=== PATIENT | male | born 1955 | race American Indian/Alaskan Native ===

== ENCOUNTER 2021-11-21 13:09 | Inpatient (IN) ==
--- NOTE | 2021-11-21 13:50 | Emergency Department Note ---
Weakness HPI General Chief complaint: Weakness Stated complaint: Weakness x7wks Time Seen by Provider: 11/21/21 13:28 Source: patient Mode of arrival: wheelchair Limitations: no limitations History of Present Illness HPI Narrative: 66-year-old male with history of chronic kidney disease due to hypertension presents for 7 weeks of increasing weakness, exertional shortness of breath, and water weight gain. He was checked for influenza today and he is influenza B positive. He states that he was in usual state of health until 7 weeks ago when he started having exertional shortness of breath and weakness. He has no known cardiac history, but endorses history of hypertension for which he is noncompliant with his antihypertensive medications. He drinks 3-6 drinks a up to 3 x week, quit smoking 10 weeks ago. Denies chest pain, nausea or vomiting. He does endorse feeling full in his belly. Also endorses some lower extremity swelling which is new for him. Denies nausea or vomiting. Denies abdominal pain. Denies difficulty urinating. Per chart review from the [facility] clinic. The patient has a previous history of drinking 15 beers per day. He does have a history of transaminitis. He was scheduled to have a liver ultrasound and GI referral at that time, but it does not seem that he followed up. Patient endorses it has been several years since he has seen a doctor. Related Data Home Medications Medication Instructions Recorded Confirmed aspirin 81 mg tablet 81 mg PO QDAY 01/20/16 05/24/16 chlorthalidone 25 mg tablet 25 mg PO QDAY 01/20/16 05/24/16 losartan 100 mg tablet 100 mg PO QDAY 01/20/16 05/24/16 simvastatin 20 mg tablet 10 mg PO QHS tab 01/20/16 05/24/16 amlodipine 5 mg tablet 5 mg PO QDAY 01/26/16 05/24/16 fluticasone propionate 50 100 mcg INTRANASAL QDAY 05/24/16 05/24/16 mcg/actuation nasal spray,suspension (Allergy Relief (fluticasone)) Previous Rx's Medication Instructions Recorded cholecalciferol (vitamin D3) 50 2,000 unit PO QDAY #30 cap 05/24/16 mcg (2,000 unit) capsule Allergies Allergy/AdvReac Type Severity Reaction Status Date / Time No Known Allergies Allergy Unknown Unknown Verified 11/21/21 13:13 Review of Systems ROS ROS Narrative: Narrative: All systems ED: reviewed and negative except as stated. [facility] Narrative Patient History Narrative: Narrative: Medical/Surgical/Family History All Active Problems (Updated 11/21/21 @ 20:26 by Susana Morales PA-C) Acute kidney injury superimposed on chronic kidney disease (Acute) Anemia (Acute) Alcoholic cirrhosis of liver with ascites (Acute) Influenza B (Acute) Hypertension (Chronic) CKD (chronic kidney disease) stage 2, GFR 60-89 ml/min (Acute) CKD (chronic kidney disease) stage 3, GFR 30-59 ml/min (Acute) Smoker (Chronic) Hypertension, essential (Chronic) Rotator cuff tear arthropathy (Chronic) Corneal lesion, benign (Chronic) Dry cough (Chronic) Elevated liver function tests (Chronic) Generalized headaches (Chronic) Medical History Corneal lesion, benign Dry cough Elevated liver function tests Generalized headaches Hypertension, essential Rotator cuff tear arthropathy Smoker Surgical History History of back surgery X2 in the early Family History Other No pertinent family history Social History Smoking Status: Current some day smoker Alcohol Intake Frequency: 2+ drinks per day Exam Narrative Narrative: General: AOx3, NAD, nontoxic appearing. Pleasant and conversant. HEENT: PERRL, EOMI, normocephalic. Moist mucous membranes. Normal facies and normal dentition. Chest: Symmetric, no pain to palpation Respiratory: Crackles at the bases bilaterally. No respiratory distress. Unlabored breathing. Heart: Regular rate and rhythm, grade 3 blowing holosystolic murmur, no clicks/rubs. Abdomen: Non-tender, distended, could not appreciate bowel tones. Right upper quadrant tenderness. Extremities: Warm and well perfused. 2+ pitting edema bilaterally. DP 2+ bilaterally. No venous stasis. Neuro: No focal deficits. Cranial nerves II-XII grossly normal. Skin: Warm dry, no rashes or lesions, no cyanosis. Psych: Normal mood and affect Heme/Lymph: No abnormal bruising General Limitations: no limitations Course Course Course Narrative: 66-year-old male presents for gradual onset weakness and edema x 7-week and is influenza B positive today Reevaluation(s) Reevaluation #1: Patient with new onset heart failure, obtain basic labs, BNP, EKG, chest x-ray Start IV and give IV Lasix 40 mg x 1 dose Time: 15:48 Reevaluation #2: EKG shows normal sinus rhythm with a rate of 88 bpm. He is diffuse nonspecific ST abnormalities with T wave inversions in inferior lateral leads. No previous EKG for comparison. Troponin is undetectable. Chest x-ray shows a middle lobe infiltrate. Patient is not being given antivirals as the duration of his influenza B is unknown. Patient bladder scanned and greater than 940 cc post residual void. Santillan catheter was placed. FAST exam at the bedside reveals large volume free fluid, formal ultrasound and paracentesis pending Reevaluation #3: CBC with no leukocytosis. He is anemic with a hemoglobin of 9.1. This was 13.0 in 10/2019. CMP reveals an elevated AST of 72 and a bilirubin of 4.4. Per chart review he does have a history of transaminitis with previous ALT of 72 and AST of 97, and Tbili 1.1 also in 2019. Creatinine is 2.4, last known creatinine of 1.3 in October 2019. Additional Reevaluation(s): Paracentesis with 5.9 L of fluid removed. This was bloody. It is been sent for cell count, Gram stain and culture. Patient is amenable to admission if it is deemed necessary. Concern would be for noncompliance and poor follow-up if he is discharged home. Vital Signs Vital signs: Vital Signs Temperature 97.4 F 11/21/21 13:09 Pulse Rate 88 11/21/21 13:09 Respiratory Rate 18 11/21/21 13:09 Blood Pressure 126/74 11/21/21 13:09 Pulse Oximetry (%) 97 11/21/21 13:09 Temperature 97.4 F 11/21/21 13:09 Pulse Rate 82 11/21/21 19:01 Respiratory Rate 18 11/21/21 13:09 Blood Pressure 101/54 11/21/21 20:01 Pulse Oximetry (%) 99 11/21/21 19:01 [facility] MDM Narrative Medical decision making narrative: Influenza B pneumonia Alcoholic liver cirrhosis Ascites Acute on chronic kidney disease Weakness Anemia Fluid cultures are pending from his paracentesis. Patient has remained hemodynamically stable after 5.9 L fluid removal. EKG did have some nonspecific ST abnormalities, but troponin is negative. His respiratory status has been stable. I have signed the patient out to Dr. Lind at change of shift. Please see his note for further details and plan of care. Lab Data Result diagrams: 11/21/21 13:46 11/21/21 13:46 Labs: Lab Results 11/21/21 11/21/21 11/21/21 Range/Units 13:46 13:46 13:46 WBC 8.3 (4.5-11.0) K/mcL RBC 2.31 L (4.63-6.08) M/mcL Hgb 9.1 L (13.7-17.5) g/dL Hct 25.4 L (40.1-51.0) % MCV 110.0 H (80.0-100.0) fL MCH 39.4 H (26.0-34.0) pg MCHC 35.8 (31.0-36.0) g/dL RDW 18.2 H (11.5-14.5) % Plt Count 127 L (140-440) K/mcL MPV 9.9 (7.4-10.4) fL Neut % (Auto) 73.7 (38.0-78.0) % Lymph % (Auto) 13.4 L (15.5-49.0) % [place] % (Auto) 12.6 H (1.0-12.0) % Eos % (Auto) 0.1 (0.0-7.0) % Baso % (Auto) 0.2 (0.0-2.0) % Lymph # (Auto) 1.11 L (1.50-4.80) K/mcL [place] # (Auto) 1.04 H (0.10-0.90) K/mcL Eos # (Auto) 0.01 (0.00-0.70) K/mcL Baso # (Auto) 0.02 (0.00-0.30) K/mcL Absolute Neutrophils 6.10 (1.80-8.00) K/mcL POC PT (11.9-14.5) POC INR (0.8-1.2) Sodium 130 L (133-145) mmol/L Potassium 3.8 (3.3-5.1) mmol/L Chloride 97 (96-108) mmol/L Carbon Dioxide 20 L (22-30) mmol/L Anion Gap 13.0 (8.0-16.0) BUN 39 H (8-23) mg/dL Creatinine 2.4 H (0.7-1.2) mg/dL GFR Calculation 27 Glucose 105 (70-105) mg/dL Calcium 8.5 L (8.6-10.4) mg/dL Total Bilirubin 4.5 H 4.4 H (0.1-1.0) mg/dL Direct Bilirubin 2.8 H (<0.3) mg/dL Indirect Bilirubin 1.6 H (0.2-0.8) mg/dL AST 72 H (<40) U/L ALT 32 (<40) U/L Alkaline Phosphatase 91 (39-117) U/L NT-Pro-B Natriuret Pep 402.4 H (<125.0) pg/mL Total Protein 7.7 (5.9-8.4) gm/dL Albumin 2.0 L (3.2-5.2) gm/dL Globulin 5.7 H (2.2-3.7) gm/dL Albumin/Globulin Ratio 0.4 L (1.0-2.3) Urine Color Urine Appearance (Clear) Urine pH (5.0-9.0) Ur Specific [place] (1.000-1.035) Urine Protein (Negative) mg/dL Urine Glucose (UA) (Negative) mg/dL Urine Ketones (Negative) mg/dL Urine Occult Blood (Negative) mg/dL Urine Nitrate (Negative) Urine Bilirubin (Negative) mg/dL Urine Urobilinogen mg/dL Ur Leukocyte Esterase (Negative) /uL Ur Culture Indicated? Hepatitis A IgM Ab (Non-Reactive) Hep Bs Antigen (Negative) Hep B Core IgM Ab (Non-Reactive) Hepatitis C Antibody (Non-Reactive) POC Troponin I 11/21/21 11/21/21 11/21/21 Range/Units 13:46 14:19 16:10 WBC (4.5-11.0) K/mcL RBC (4.63-6.08) M/mcL Hgb (13.7-17.5) g/dL Hct (40.1-51.0) % MCV (80.0-100.0) fL MCH (26.0-34.0) pg MCHC (31.0-36.0) g/dL RDW (11.5-14.5) % Plt Count (140-440) K/mcL MPV (7.4-10.4) fL Neut % (Auto) (38.0-78.0) % Lymph % (Auto) (15.5-49.0) % [place] % (Auto) (1.0-12.0) % Eos % (Auto) (0.0-7.0) % Baso % (Auto) (0.0-2.0) % Lymph # (Auto) (1.50-4.80) K/mcL [place] # (Auto) (0.10-0.90) K/mcL Eos # (Auto) (0.00-0.70) K/mcL Baso # (Auto) (0.00-0.30) K/mcL Absolute Neutrophils (1.80-8.00) K/mcL POC PT (11.9-14.5) POC INR (0.8-1.2) Sodium (133-145) mmol/L Potassium (3.3-5.1) mmol/L Chloride (96-108) mmol/L Carbon Dioxide (22-30) mmol/L Anion Gap (8.0-16.0) BUN (8-23) mg/dL Creatinine (0.7-1.2) mg/dL GFR Calculation Glucose (70-105) mg/dL Calcium (8.6-10.4) mg/dL Total Bilirubin (0.1-1.0) mg/dL Direct Bilirubin (<0.3) mg/dL Indirect Bilirubin (0.2-0.8) mg/dL AST (<40) U/L ALT (<40) U/L Alkaline Phosphatase (39-117) U/L NT-Pro-B Natriuret Pep (<125.0) pg/mL Total Protein (5.9-8.4) gm/dL Albumin (3.2-5.2) gm/dL Globulin (2.2-3.7) gm/dL Albumin/Globulin Ratio (1.0-2.3) Urine Color Jennie Urine Appearance Hazy A (Clear) Urine pH 5.0 (5.0-9.0) Ur Specific [place] 1.016 (1.000-1.035) Urine Protein Negative (Negative) mg/dL Urine Glucose (UA) Negative (Negative) mg/dL Urine Ketones Negative (Negative) mg/dL Urine Occult Blood Negative (Negative) mg/dL Urine Nitrate Negative (Negative) Urine Bilirubin Negative (Negative) mg/dL Urine Urobilinogen 4.0 A mg/dL Ur Leukocyte Esterase Negative (Negative) /uL Ur Culture Indicated? No Hepatitis A IgM Ab Non-reactive (Non-Reactive) Hep Bs Antigen Negative (Negative) Hep B Core IgM Ab Non-reactive (Non-Reactive) Hepatitis C Antibody Non-reactive (Non-Reactive) POC Troponin I 0 11/21/21 Range/Units 19:02 WBC (4.5-11.0) K/mcL RBC (4.63-6.08) M/mcL Hgb (13.7-17.5) g/dL Hct (40.1-51.0) % MCV (80.0-100.0) fL MCH (26.0-34.0) pg MCHC (31.0-36.0) g/dL RDW (11.5-14.5) % Plt Count (140-440) K/mcL MPV (7.4-10.4) fL Neut % (Auto) (38.0-78.0) % Lymph % (Auto) (15.5-49.0) % [place] % (Auto) (1.0-12.0) % Eos % (Auto) (0.0-7.0) % Baso % (Auto) (0.0-2.0) % Lymph # (Auto) (1.50-4.80) K/mcL [place] # (Auto) (0.10-0.90) K/mcL Eos # (Auto) (0.00-0.70) K/mcL Baso # (Auto) (0.00-0.30) K/mcL Absolute Neutrophils (1.80-8.00) K/mcL POC PT 18.5 H (11.9-14.5) POC INR 1.6 H (0.8-1.2) Sodium (133-145) mmol/L Potassium (3.3-5.1) mmol/L Chloride (96-108) mmol/L Carbon Dioxide (22-30) mmol/L Anion Gap (8.0-16.0) BUN (8-23) mg/dL Creatinine (0.7-1.2) mg/dL GFR Calculation Glucose (70-105) mg/dL Calcium (8.6-10.4) mg/dL Total Bilirubin (0.1-1.0) mg/dL Direct Bilirubin (<0.3) mg/dL Indirect Bilirubin (0.2-0.8) mg/dL AST (<40) U/L ALT (<40) U/L Alkaline Phosphatase (39-117) U/L NT-Pro-B Natriuret Pep (<125.0) pg/mL Total Protein (5.9-8.4) gm/dL Albumin (3.2-5.2) gm/dL Globulin (2.2-3.7) gm/dL Albumin/Globulin Ratio (1.0-2.3) Urine Color Urine Appearance (Clear) Urine pH (5.0-9.0) Ur Specific [place] (1.000-1.035) Urine Protein (Negative) mg/dL Urine Glucose (UA) (Negative) mg/dL Urine Ketones (Negative) mg/dL Urine Occult Blood (Negative) mg/dL Urine Nitrate (Negative) Urine Bilirubin (Negative) mg/dL Urine Urobilinogen mg/dL Ur Leukocyte Esterase (Negative) /uL Ur Culture Indicated? Hepatitis A IgM Ab (Non-Reactive) Hep Bs Antigen (Negative) Hep B Core IgM Ab (Non-Reactive) Hepatitis C Antibody (Non-Reactive) POC Troponin I ED POC Tests ED POC Tests: TONY - Influenza A Negative TONY - Influenza B Positive TONY - SARS Antigen Negative Discharge Plan Patient/Caregiver Discharge Instructions Pt seen by FORMSTONE FITTER/PA only: Yes Clinical Impression: Acute kidney injury superimposed on chronic kidney disease, Anemia, Alcoholic cirrhosis of liver with ascites, Influenza B Patient Disposition: Still a Patient Follow up with: Dar Lester ARNP [Primary Care Provider] - Prescriptions: No Action simvastatin 20 mg tablet 10 mg PO QHS 0RF losartan 100 mg tablet 100 mg PO QDAY 0RF aspirin 81 mg tablet 81 mg PO QDAY 0RF chlorthalidone 25 mg tablet 25 mg PO QDAY 0RF amlodipine 5 mg tablet 5 mg PO QDAY 0RF fluticasone propionate [Allergy Relief (fluticasone)] 50 mcg/actuation spray,suspension 100 mcg INTRANASAL QDAY 0RF cholecalciferol (vitamin D3) 2,000 unit capsule 2,000 unit PO QDAY Qty: 30 4RF
[2021-11-21] MEDS ORDERED: FUROSEMIDE 40 MG/4 ML VIAL IV ONE (13:51)
[2021-11-21 14:28] LABS: Basophils # (Auto) 0.02 K/mcL (0.00-0.30); Basophils % (Auto) 0.2 % (0.0-2.0); Eosinophils # (Auto) 0.01 K/mcL (0.00-0.70); Eosinophils % (Auto) 0.1 % (0.0-7.0); Hematocrit 25.4 % (40.1-51.0); Hemoglobin 9.1 g/dL (13.7-17.5); Lymphocytes # (Auto) 1.11 K/mcL (1.50-4.80); Lymphocytes % (Auto) 13.4 % (15.5-49.0); Mean Corpuscular HGB Conc 35.8 g/dL (31.0-36.0); Mean Platelet Volume 9.9 fL (7.4-10.4); Monocytes # (Auto) 1.04 K/mcL (0.10-0.90); Monocytes % (Auto) 12.6 % (1.0-12.0); Neutrophils % (Auto) 73.7 % (38.0-78.0); Platelet Count 127 K/mcL (140-440); RBC 2.31 M/mcL (4.63-6.08); Red Cell Distribution Width 18.2 % (11.5-14.5); WBC 8.3 K/mcL (4.5-11.0)
[2021-11-21] MEDS ORDERED: POTASSIUM CHLORIDE 20 MEQ TABLET PO ONE (14:32)
--- NOTE | 2021-11-21 14:45 | XRay Report ---
CLINICAL INFORMATION: Weakness COMPARISON: None. TECHNIQUE: PA and Lateral views FINDINGS: The heart size, mediastinum and pulmonary vessels are unremarkable. Small right middle lobe infiltrate is present. 9 mm nodular density in the left lateral base is likely a nipple shadow. Suggest repeat film with nipple markers in place. There are no effusions. The bones and soft tissues are within normal limits. IMPRESSION: Small right middle lobe infiltrate. 9 mm nodule left lateral base likely nipple shadow. Repeat film with nipple markers in place Interpreted and Authenticated by: Asim Marvin 11/21/21
[2021-11-21 14:53] LABS: proBNP 402.4 pg/mL (<125.0)
[2021-11-21 14:55] LABS: ALT/SGPT 32 U/L (<40); AST/SGOT 72 U/L (<40); Albumin/Globulin Ratio 0.4 (1.0-2.3); Alkaline Phosphatase 91 U/L (39-117); Bilirubin,Total 4.5 mg/dL (0.1-1.0); Blood Urea Nitrogen 39 mg/dL (8-23); Calcium 8.5 mg/dL (8.6-10.4); Carbon Dioxide 20 mmol/L (22-30); Chloride 97 mmol/L (96-108); Globulin 5.7 gm/dL (2.2-3.7); Glomerular Filtration Rate 27; Glucose 105 mg/dL (70-105)
[2021-11-21 15:16] LABS: Appearance,Urine HAZY (Clear); Bilirubin,Urine Negative (Negative); Color,Urine AMBER; Culture Indicated,Urine No; Glucose,Urine (UA) Negative (Negative); Ketones,Urine Negative (Negative); Leukocyte Esterase,Urine Negative /uL (Negative); Nitrate,Urine Negative (Negative); Protein,Urine Negative (Negative); Specific Gravity,Urine 1.016 (1.000-1.035); Urine Blood Negative (Negative)
[2021-11-21 15:57] LABS: Bilirubin,Direct 2.8 mg/dL (<0.3); Bilirubin,Indirect 1.6 mg/dL (0.2-0.8); Bilirubin,Total 4.4 mg/dL (0.1-1.0)
[2021-11-21] MEDS ORDERED: ALBUMIN HUMAN 25 GM/100 ML BAG IV ONE (17:58)
[2021-11-21 18:48] LABS: Hepatitis B Surface Antigen Negative (Negative); Hepatitis C Virus Antibody Non-Reactive (Non-Reactive)
[2021-11-21] MEDS ORDERED: ALBUMIN HUMAN 12.5 GM/50 ML BAG IV ONE (19:03)
[2021-11-21 19:06] LABS: POC INR 1.6 (0.8-1.2); POC Pro Time 18.5 (11.9-14.5)
--- NOTE | 2021-11-21 19:54 | EKG ---
[facility] Test Date: 2021-11-21 Pat Name: Tone Alcantara Department: ED Room: Gender: Male [employer]: AW : 1955 Requested By: Susana Morales Order Number: [id number] Reading MD: Giorgio Orozco Measurements Intervals [place] Rate: 88 P: 18 NV: 144 QRS: 47 QRSD: 76 T: 258 QT: 322 QTc: 390 Interpretive Statements Sinus rhythm Borderline T abnormalities, diffuse leads Electronically Signed On 11-21-2021 19:54:31 PDT by Giorgio Orozco /store/M0/[id number]
[2021-11-21 21:15] LABS: Mesothelial,Peritoneal Fluid 15 %; Monocyte,Peritoneal Fluid 66 %; Neutrophils,Peritoneal Fluid 11 %; Nucleated Cel,Peritoneal Fluid 184 /cumm; RBC,Peritoneal Fluid <50,000 /cumm
--- NOTE | 2021-11-21 22:29 | Emergency Department Note ---
Course Vital Signs Vital signs: Vital Signs Temperature 97.4 F 11/21/21 13:09 Pulse Rate 88 11/21/21 13:09 Respiratory Rate 18 11/21/21 13:09 Blood Pressure 126/74 11/21/21 13:09 Pulse Oximetry (%) 97 11/21/21 13:09 Temperature 97.4 F 11/21/21 13:09 Pulse Rate 87 11/22/21 06:13 Respiratory Rate 18 11/21/21 13:09 Blood Pressure 98/54 11/22/21 04:01 Pulse Oximetry (%) 98 11/22/21 06:13 MDM MDM Narrative Medical decision making narrative: 2029: Patient received in signout from [facility] [place]. History of chronic kidney disease and alcoholic cirrhosis with ascites. He presented today for increased abdominal distention, weakness, and shortness of breath. 2229: Patient was found today to have acute on chronic kidney injury with a creatinine of 2.4. His last known creatinine was 1.3. Hemoglobin noted to be 9.1 but patient denies any blood in the stool or rectal bleeding. Total bilirubin is 4.4, INR is 1.6. Ultrasound of the abdomen shows evidence of cirrhosis and moderate to large ascites. He had a therapeutic paracentesis with 5.9 L of fluid removed. He was given albumin after the paracentesis. Peritoneal fluid studies do not show evidence of SBP. He did test positive for influenza B today. Given his worsening cirrhosis and worsening renal failure, he would benefit from admission for further treatment and evaluation. We currently do not have any beds available in the hospital, will attempt to find a suitable facility for admission. Vital signs have been stable. Will continue to mo nitor. 0600: We have reached out to [facility] for bed availability and are currently on a wait list. Patient does not want to be transferred out of the [place] and there may be beds available at our hospital later this morning. Review of patient's ultrasound from last night shows an inhomogenous pancreas which could indicate pancreatitis. Lipase and noncontrast CT abdomen ordered. Patient remains stable and comfortable. 0655: Lipase level and CT abdomen are pending. Will sign out to reema SCHNEIDER, Dr. Driver. Lab Data Lab results reviewed: Yes I reviewed the patient's lab results. Result diagrams: 11/21/21 13:46 11/21/21 13:46 Labs: Lab Results 11/21/21 11/21/21 11/21/21 Range/Units 13:46 13:46 13:46 WBC 8.3 (4.5-11.0) K/mcL RBC 2.31 L (4.63-6.08) M/mcL Hgb 9.1 L (13.7-17.5) g/dL Hct 25.4 L (40.1-51.0) % MCV 110.0 H (80.0-100.0) fL MCH 39.4 H (26.0-34.0) pg MCHC 35.8 (31.0-36.0) g/dL RDW 18.2 H (11.5-14.5) % Plt Count 127 L (140-440) K/mcL MPV 9.9 (7.4-10.4) fL Neut % (Auto) 73.7 (38.0-78.0) % Lymph % (Auto) 13.4 L (15.5-49.0) % [place] % (Auto) 12.6 H (1.0-12.0) % Eos % (Auto) 0.1 (0.0-7.0) % Baso % (Auto) 0.2 (0.0-2.0) % Lymph # (Auto) 1.11 L (1.50-4.80) K/mcL [place] # (Auto) 1.04 H (0.10-0.90) K/mcL Eos # (Auto) 0.01 (0.00-0.70) K/mcL Baso # (Auto) 0.02 (0.00-0.30) K/mcL Absolute Neutrophils 6.10 (1.80-8.00) K/mcL POC PT (11.9-14.5) POC INR (0.8-1.2) Sodium 130 L (133-145) mmol/L Potassium 3.8 (3.3-5.1) mmol/L Chloride 97 (96-108) mmol/L Carbon Dioxide 20 L (22-30) mmol/L Anion Gap 13.0 (8.0-16.0) BUN 39 H (8-23) mg/dL Creatinine 2.4 H (0.7-1.2) mg/dL GFR Calculation 27 Glucose 105 (70-105) mg/dL Calcium 8.5 L (8.6-10.4) mg/dL Total Bilirubin 4.5 H 4.4 H (0.1-1.0) mg/dL Direct Bilirubin 2.8 H (<0.3) mg/dL Indirect Bilirubin 1.6 H (0.2-0.8) mg/dL AST 72 H (<40) U/L ALT 32 (<40) U/L Alkaline Phosphatase 91 (39-117) U/L NT-Pro-B Natriuret Pep 402.4 H (<125.0) pg/mL Total Protein 7.7 (5.9-8.4) gm/dL Albumin 2.0 L (3.2-5.2) gm/dL Globulin 5.7 H (2.2-3.7) gm/dL Albumin/Globulin Ratio 0.4 L (1.0-2.3) Urine Color Urine Appearance (Clear) Urine pH (5.0-9.0) Ur Specific [place] (1.000-1.035) Urine Protein (Negative) mg/dL Urine Glucose (UA) (Negative) mg/dL Urine Ketones (Negative) mg/dL Urine Occult Blood (Negative) mg/dL Urine Nitrate (Negative) Urine Bilirubin (Negative) mg/dL Urine Urobilinogen mg/dL Ur Leukocyte Esterase (Negative) /uL Ur Culture Indicated? Peritoneal Source Peritoneal Color Peritoneal Appearance Peritoneal RBC /cumm Periton Tot Cells Ct Periton Nuc Cells /cumm Periton Neutrophils % Periton Lymphocytes % Peritoneal Monocytes % Periton Mesothelial % Hepatitis A IgM Ab (Non-Reactive) Hep Bs Antigen (Negative) Hep B Core IgM Ab (Non-Reactive) Hepatitis C Antibody (Non-Reactive) POC Troponin I 11/21/21 11/21/21 11/21/21 Range/Units 13:46 14:19 16:10 WBC (4.5-11.0) K/mcL RBC (4.63-6.08) M/mcL Hgb (13.7-17.5) g/dL Hct (40.1-51.0) % MCV (80.0-100.0) fL MCH (26.0-34.0) pg MCHC (31.0-36.0) g/dL RDW (11.5-14.5) % Plt Count (140-440) K/mcL MPV (7.4-10.4) fL Neut % (Auto) (38.0-78.0) % Lymph % (Auto) (15.5-49.0) % [place] % (Auto) (1.0-12.0) % Eos % (Auto) (0.0-7.0) % Baso % (Auto) (0.0-2.0) % Lymph # (Auto) (1.50-4.80) K/mcL [place] # (Auto) (0.10-0.90) K/mcL Eos # (Auto) (0.00-0.70) K/mcL Baso # (Auto) (0.00-0.30) K/mcL Absolute Neutrophils (1.80-8.00) K/mcL POC PT (11.9-14.5) POC INR (0.8-1.2) Sodium (133-145) mmol/L Potassium (3.3-5.1) mmol/L Chloride (96-108) mmol/L Carbon Dioxide (22-30) mmol/L Anion Gap (8.0-16.0) BUN (8-23) mg/dL Creatinine (0.7-1.2) mg/dL GFR Calculation Glucose (70-105) mg/dL Calcium (8.6-10.4) mg/dL Total Bilirubin (0.1-1.0) mg/dL Direct Bilirubin (<0.3) mg/dL Indirect Bilirubin (0.2-0.8) mg/dL AST (<40) U/L ALT (<40) U/L Alkaline Phosphatase (39-117) U/L NT-Pro-B Natriuret Pep (<125.0) pg/mL Total Protein (5.9-8.4) gm/dL Albumin (3.2-5.2) gm/dL Globulin (2.2-3.7) gm/dL Albumin/Globulin Ratio (1.0-2.3) Urine Color Jennie Urine Appearance Hazy A (Clear) Urine pH 5.0 (5.0-9.0) Ur Specific [place] 1.016 (1.000-1.035) Urine Protein Negative (Negative) mg/dL Urine Glucose (UA) Negative (Negative) mg/dL Urine Ketones Negative (Negative) mg/dL Urine Occult Blood Negative (Negative) mg/dL Urine Nitrate Negative (Negative) Urine Bilirubin Negative (Negative) mg/dL Urine Urobilinogen 4.0 A mg/dL Ur Leukocyte Esterase Negative (Negative) /uL Ur Culture Indicated? No Peritoneal Source Peritoneal Color Peritoneal Appearance Peritoneal RBC /cumm Periton Tot Cells Ct Periton Nuc Cells /cumm Periton Neutrophils % Periton Lymphocytes % Peritoneal Monocytes % Periton Mesothelial % Hepatitis A IgM Ab Non-reactive (Non-Reactive) Hep Bs Antigen Negative (Negative) Hep B Core IgM Ab Non-reactive (Non-Reactive) Hepatitis C Antibody Non-reactive (Non-Reactive) POC Troponin I 0 11/21/21 11/21/21 Range/Units 18:37 19:02 WBC (4.5-11.0) K/mcL RBC (4.63-6.08) M/mcL Hgb (13.7-17.5) g/dL Hct (40.1-51.0) % MCV (80.0-100.0) fL MCH (26.0-34.0) pg MCHC (31.0-36.0) g/dL RDW (11.5-14.5) % Plt Count (140-440) K/mcL MPV (7.4-10.4) fL Neut % (Auto) (38.0-78.0) % Lymph % (Auto) (15.5-49.0) % [place] % (Auto) (1.0-12.0) % Eos % (Auto) (0.0-7.0) % Baso % (Auto) (0.0-2.0) % Lymph # (Auto) (1.50-4.80) K/mcL [place] # (Auto) (0.10-0.90) K/mcL Eos # (Auto) (0.00-0.70) K/mcL Baso # (Auto) (0.00-0.30) K/mcL Absolute Neutrophils (1.80-8.00) K/mcL POC PT 18.5 H (11.9-14.5) POC INR 1.6 H (0.8-1.2) Sodium (133-145) mmol/L Potassium (3.3-5.1) mmol/L Chloride (96-108) mmol/L Carbon Dioxide (22-30) mmol/L Anion Gap (8.0-16.0) BUN (8-23) mg/dL Creatinine (0.7-1.2) mg/dL GFR Calculation Glucose (70-105) mg/dL Calcium (8.6-10.4) mg/dL Total Bilirubin (0.1-1.0) mg/dL Direct Bilirubin (<0.3) mg/dL Indirect Bilirubin (0.2-0.8) mg/dL AST (<40) U/L ALT (<40) U/L Alkaline Phosphatase (39-117) U/L NT-Pro-B Natriuret Pep (<125.0) pg/mL Total Protein (5.9-8.4) gm/dL Albumin (3.2-5.2) gm/dL Globulin (2.2-3.7) gm/dL Albumin/Globulin Ratio (1.0-2.3) Urine Color Urine Appearance (Clear) Urine pH (5.0-9.0) Ur Specific [place] (1.000-1.035) Urine Protein (Negative) mg/dL Urine Glucose (UA) (Negative) mg/dL Urine Ketones (Negative) mg/dL Urine Occult Blood (Negative) mg/dL Urine Nitrate (Negative) Urine Bilirubin (Negative) mg/dL Urine Urobilinogen mg/dL Ur Leukocyte Esterase (Negative) /uL Ur Culture Indicated? Peritoneal Source Peritoneal Peritoneal Color Red Peritoneal Appearance Hazy Peritoneal RBC <50,000 /cumm Periton Tot Cells Ct 100 Periton Nuc Cells 184 /cumm Periton Neutrophils 11 % Periton Lymphocytes 8 % Peritoneal Monocytes 66 % Periton Mesothelial 15 % Hepatitis A IgM Ab (Non-Reactive) Hep Bs Antigen (Negative) Hep B Core IgM Ab (Non-Reactive) Hepatitis C Antibody (Non-Reactive) POC Troponin I ED POC Tests ED POC Tests: TONY - Influenza A Negative TONY - Influenza B Positive TONY - SARS Antigen Negative Radiology Data Radiology results reviewed: Yes I reviewed the patient's radiology results. Radiology results narrative: Ultrasound abdomen: Nodular liver contour consistent with cirrhosis. Moderate to large ascites noted in all 4 quadrants, per outside radiology interpretation. Discharge Plan Patient/Caregiver Discharge Instructions Pt seen by DATA CAPTURE SPECIALIST/PA only: Yes Clinical Impression: Acute kidney injury superimposed on chronic kidney disease, Anemia, Alcoholic cirrhosis of liver with ascites, Influenza B Patient Disposition: Still a Patient Follow up with: Trevon,Corlene, PREPARING BOX TENDER [Primary Care Provider] - Prescriptions: No Action simvastatin 20 mg tablet 10 mg PO QHS 0RF losartan 100 mg tablet 100 mg PO QDAY 0RF aspirin 81 mg tablet 81 mg PO QDAY 0RF chlorthalidone 25 mg tablet 25 mg PO QDAY 0RF amlodipine 5 mg tablet 5 mg PO QDAY 0RF fluticasone propionate [Allergy Relief (fluticasone)] 50 mcg/actuation spray,suspension 100 mcg INTRANASAL QDAY 0RF cholecalciferol (vitamin D3) 2,000 unit capsule 2,000 unit PO QDAY Qty: 30 4RF
[2021-11-21] MEDS: 0.9 % SODIUM CHLORIDE 1,000 ML IV SCH (23:11)
--- NOTE | 2021-11-22 03:58 | Ultrasound Report ---
Ultrasound-guided paracentesis Technique: The procedure and risks including possibility of bleeding, infection, bowel and parenchymal organ perforation were explained the patient. He understood and wished to proceed. Animal Stunner scanning demonstrated Ascites in the right lower quadrant which was free of bowel. The skin was marked, prepped and locally anesthetized 1% lidocaine to the level of the parietal peritoneum using a 25-gauge needle. A 18-gauge Yueh needle was then placed under sonographic guidance into the ascites and 6 L of serosanguineous ascites was aspirated and discarded per request. The needle was removed. Postprocedure scanning shows minimal residual ascites. No apparent complication - patient tolerated procedure well. IMPRESSION: Successful ultrasound-guided paracentesis yielding 6 L of serosanguineous ascites. Postprocedure scanning shows only minimal residual fluid. Patient tolerated procedure well without apparent complication Interpreted and Authenticated by: Asim Marvin 11/22/21
--- NOTE | 2021-11-22 04:04 | Ultrasound Report ---
CLINICAL INFORMATION: Liver disease. COMPARISON: None. FINDINGS: Liver is markedly enlarged with a vertical dimension of 20 cm. Echotexture is elevated with irregular contour compatible cirrhosis. No focal hepatic lesions. Few small stones present within the gallbladder. Gallbladder wall is normal thickness-no focal tenderness. Common bile duct is normal-5 mm. Pancreas is inhomogeneous. Right kidney is unremarkable. Moderate ascites IMPRESSION: Moderate hepatomegaly with cirrhosis changes. Moderate ascites Cholelithiasis. Gallbladder and bile ducts otherwise normal Inhomogeneous pancreas which could indicate pancreatitis. Consider abdominal CT Interpreted and Authenticated by: Asim Marvin 11/22/21
--- NOTE | 2021-11-22 08:12 | Emergency Department Note ---
HPI General Chief complaint: Weakness Stated complaint: Weakness [id number] Time Seen by Provider: 11/21/21 13:28 Source: patient Mode of arrival: wheelchair Limitations: no limitations History of Present Illness HPI Narrative: Narrative: This patient was signed out to me by Dr Lind. He was initially seen by HERB Morales who found him to have apparent new onset ascites and elevated Cr suggesting hepatorenal syndrome. He was additionally found to be influenza positive, and had a questionable infiltrate on the CXR. Overall presentation was not really c/w PNA and the onset of flu Sx was unclear thus it was decided to forego tamiflu and abx. He underwent paracentesis last night w/ 5.9L fluid removed and no evidence of SBP on results. No beds were available here or at [facility] and he was reluctant to leave the [place] thus he remained in the ED overnight pending further attempts at local dispo this AM. Today he reports some abdominal pain and o/w has no complaints, no CP, SOB, F/C. He has been stable overnight. Related Data Home Medications Medication Instructions Recorded Confirmed aspirin 81 mg tablet 81 mg PO QDAY 01/20/16 05/24/16 chlorthalidone 25 mg tablet 25 mg PO QDAY 01/20/16 05/24/16 losartan 100 mg tablet 100 mg PO QDAY 01/20/16 05/24/16 simvastatin 20 mg tablet 10 mg PO QHS tab 01/20/16 05/24/16 amlodipine 5 mg tablet 5 mg PO QDAY 01/26/16 05/24/16 fluticasone propionate 50 100 mcg INTRANASAL QDAY 05/24/16 05/24/16 mcg/actuation nasal spray,suspension (Allergy Relief (fluticasone)) Previous Rx's Medication Instructions Recorded cholecalciferol (vitamin D3) 50 2,000 unit PO QDAY #30 cap 05/24/16 mcg (2,000 unit) capsule Allergies Allergy/AdvReac Type Severity Reaction Status Date / Time No Known Allergies Allergy Unknown Unknown Verified 11/21/21 13:13 Review of Systems ROS ROS Narrative: Narrative: PFSH Narrative Patient History Narrative: Narrative: Medical/Surgical/Family History All Active Problems (Updated 11/21/21 @ 20:26 by Susana Morales PA-C) Acute kidney injury superimposed on chronic kidney disease (Acute) Anemia (Acute) Alcoholic cirrhosis of liver with ascites (Acute) Influenza B (Acute) Hypertension (Chronic) CKD (chronic kidney disease) stage 2, GFR 60-89 ml/min (Acute) CKD (chronic kidney disease) stage 3, GFR 30-59 ml/min (Acute) Smoker (Chronic) Hypertension, essential (Chronic) Rotator cuff tear arthropathy (Chronic) Corneal lesion, benign (Chronic) Dry cough (Chronic) Elevated liver function tests (Chronic) Generalized headaches (Chronic) Medical History Corneal lesion, benign Dry cough Elevated liver function tests Generalized headaches Hypertension, essential Rotator cuff tear arthropathy Smoker Surgical History History of back surgery X2 in the early Family History Other No pertinent family history Social History Smoking Status: Current some day smoker Alcohol Intake Frequency: 2+ drinks per day Exam Narrative Narrative: Narrative: General Limitations: no limitations General appearance: Present alert and in no apparent distress Chest Chest: Present normal inspection and symmetric chest wall rise Respiratory Respiratory: Present normal lung sounds bilaterally; Absent respiratory distress, accessory muscle use or decreased breath sounds Cardiovascular Cardiovascular: Present regular rate, normal rhythm, +S1, +S2 and other (2+ B/L radial pulses); Absent systolic murmur or diastolic murmur Adbominal Abdominal: Present soft, tenderness (LLQ), normal bowel sounds and other (RLQ paracentesis dressing in place, C/D/I); Absent distention, guarding or rebound Neurological Neurological: Present alert and oriented X3 Psychiatric Psychiatric: Present normal affect Course Vital Signs Vital signs: Vital Signs Temperature 97.4 F 11/21/21 13:09 Pulse Rate 88 11/21/21 13:09 Respiratory Rate 18 11/21/21 13:09 Blood Pressure 126/74 11/21/21 13:09 Pulse Oximetry (%) 97 11/21/21 13:09 Temperature 97.4 F 11/22/21 14:13 Pulse Rate 92 H 11/22/21 14:13 Respiratory Rate 18 11/22/21 14:13 Blood Pressure 103/54 11/22/21 14:13 Pulse Oximetry (%) 95 11/22/21 14:13 MDM MDM Narrative Medical decision making narrative: Narrative: Pt remained stable overnight, and on my evaluation this AM was in fair condition. Given his apparent new onset ascites and FAB, I was concerned for possible hepatorenal syndrome. Efforts for admission and T/F overnight had not been successful. However this AM beds became available here in the hospital. Thus in the afternoon I d/w Dr Schneider, who accepted pt for admission. Of note this AM pt did c/o some abd pain and had some mild TTP, however CT had been completed just before the start of my shift and was negative for any surgical pathology or complication of paracentesis. Lab Data Result diagrams: 11/21/21 13:46 11/21/21 13:46 Labs: Lab Results 11/21/21 11/21/21 11/21/21 Range/Units 13:46 13:46 13:46 WBC 8.3 (4.5-11.0) K/mcL RBC 2.31 L (4.63-6.08) M/mcL Hgb 9.1 L (13.7-17.5) g/dL Hct 25.4 L (40.1-51.0) % MCV 110.0 H (80.0-100.0) fL MCH 39.4 H (26.0-34.0) pg MCHC 35.8 (31.0-36.0) g/dL RDW 18.2 H (11.5-14.5) % Plt Count 127 L (140-440) K/mcL MPV 9.9 (7.4-10.4) fL Neut % (Auto) 73.7 (38.0-78.0) % Lymph % (Auto) 13.4 L (15.5-49.0) % Weld % (Auto) 12.6 H (1.0-12.0) % Eos % (Auto) 0.1 (0.0-7.0) % Baso % (Auto) 0.2 (0.0-2.0) % Lymph # (Auto) 1.11 L (1.50-4.80) K/mcL Weld # (Auto) 1.04 H (0.10-0.90) K/mcL Eos # (Auto) 0.01 (0.00-0.70) K/mcL Baso # (Auto) 0.02 (0.00-0.30) K/mcL Absolute Neutrophils 6.10 (1.80-8.00) K/mcL POC PT (11.9-14.5) POC INR (0.8-1.2) Sodium 130 L (133-145) mmol/L Potassium 3.8 (3.3-5.1) mmol/L Chloride 97 (96-108) mmol/L Carbon Dioxide 20 L (22-30) mmol/L Anion Gap 13.0 (8.0-16.0) BUN 39 H (8-23) mg/dL Creatinine 2.4 H (0.7-1.2) mg/dL GFR Calculation 27 Glucose 105 (70-105) mg/dL Calcium 8.5 L (8.6-10.4) mg/dL Total Bilirubin 4.5 H 4.4 H (0.1-1.0) mg/dL Direct Bilirubin 2.8 H (<0.3) mg/dL Indirect Bilirubin 1.6 H (0.2-0.8) mg/dL AST 72 H (<40) U/L ALT 32 (<40) U/L Alkaline Phosphatase 91 (39-117) U/L NT-Pro-B Natriuret Pep 402.4 H (<125.0) pg/mL Total Protein 7.7 (5.9-8.4) gm/dL Albumin 2.0 L (3.2-5.2) gm/dL Globulin 5.7 H (2.2-3.7) gm/dL Albumin/Globulin Ratio 0.4 L (1.0-2.3) Lipase (7-60) U/L Urine Color Urine Appearance (Clear) Urine pH (5.0-9.0) Ur Specific [place] (1.000-1.035) Urine Protein (Negative) mg/dL Urine Glucose (UA) (Negative) mg/dL Urine Ketones (Negative) mg/dL Urine Occult Blood (Negative) mg/dL Urine Nitrate (Negative) Urine Bilirubin (Negative) mg/dL Urine Urobilinogen mg/dL Ur Leukocyte Esterase (Negative) /uL Ur Culture Indicated? Peritoneal Source Peritoneal Color Peritoneal Appearance Peritoneal RBC /cumm Periton Tot Cells Ct Periton Nuc Cells /cumm Periton Neutrophils % Periton Lymphocytes % Peritoneal Monocytes % Periton Mesothelial % Ethyl Alcohol (<0.010) gm/dL Hepatitis A IgM Ab (Non-Reactive) Hep Bs Antigen (Negative) Hep B Core IgM Ab (Non-Reactive) Hepatitis C Antibody (Non-Reactive) POC Troponin I 11/21/21 11/21/21 11/21/21 Range/Units 13:46 14:19 16:10 WBC (4.5-11.0) K/mcL RBC (4.63-6.08) M/mcL Hgb (13.7-17.5) g/dL Hct (40.1-51.0) % MCV (80.0-100.0) fL MCH (26.0-34.0) pg MCHC (31.0-36.0) g/dL RDW (11.5-14.5) % Plt Count (140-440) K/mcL MPV (7.4-10.4) fL Neut % (Auto) (38.0-78.0) % Lymph % (Auto) (15.5-49.0) % Weld % (Auto) (1.0-12.0) % Eos % (Auto) (0.0-7.0) % Baso % (Auto) (0.0-2.0) % Lymph # (Auto) (1.50-4.80) K/mcL Weld # (Auto) (0.10-0.90) K/mcL Eos # (Auto) (0.00-0.70) K/mcL Baso # (Auto) (0.00-0.30) K/mcL Absolute Neutrophils (1.80-8.00) K/mcL POC PT (11.9-14.5) POC INR (0.8-1.2) Sodium (133-145) mmol/L Potassium (3.3-5.1) mmol/L Chloride (96-108) mmol/L Carbon Dioxide (22-30) mmol/L Anion Gap (8.0-16.0) BUN (8-23) mg/dL Creatinine (0.7-1.2) mg/dL GFR Calculation Glucose (70-105) mg/dL Calcium (8.6-10.4) mg/dL Total Bilirubin (0.1-1.0) mg/dL Direct Bilirubin (<0.3) mg/dL Indirect Bilirubin (0.2-0.8) mg/dL AST (<40) U/L ALT (<40) U/L Alkaline Phosphatase (39-117) U/L NT-Pro-B Natriuret Pep (<125.0) pg/mL Total Protein (5.9-8.4) gm/dL Albumin (3.2-5.2) gm/dL Globulin (2.2-3.7) gm/dL Albumin/Globulin Ratio (1.0-2.3) Lipase (7-60) U/L Urine Color Jennie Urine Appearance Hazy A (Clear) Urine pH 5.0 (5.0-9.0) Ur Specific [place] 1.016 (1.000-1.035) Urine Protein Negative (Negative) mg/dL Urine Glucose (UA) Negative (Negative) mg/dL Urine Ketones Negative (Negative) mg/dL Urine Occult Blood Negative (Negative) mg/dL Urine Nitrate Negative (Negative) Urine Bilirubin Negative (Negative) mg/dL Urine Urobilinogen 4.0 A mg/dL Ur Leukocyte Esterase Negative (Negative) /uL Ur Culture Indicated? No Peritoneal Source Peritoneal Color Peritoneal Appearance Peritoneal RBC /cumm Periton Tot Cells Ct Periton Nuc Cells /cumm Periton Neutrophils % Periton Lymphocytes % Peritoneal Monocytes % Periton Mesothelial % Ethyl Alcohol (<0.010) gm/dL Hepatitis A IgM Ab Non-reactive (Non-Reactive) Hep Bs Antigen Negative (Negative) Hep B Core IgM Ab Non-reactive (Non-Reactive) Hepatitis C Antibody Non-reactive (Non-Reactive) POC Troponin I 0 11/21/21 11/21/21 11/22/21 Range/Units 18:37 19:02 06:09 WBC (4.5-11.0) K/mcL RBC (4.63-6.08) M/mcL Hgb (13.7-17.5) g/dL Hct (40.1-51.0) % MCV (80.0-100.0) fL MCH (26.0-34.0) pg MCHC (31.0-36.0) g/dL RDW (11.5-14.5) % Plt Count (140-440) K/mcL MPV (7.4-10.4) fL Neut % (Auto) (38.0-78.0) % Lymph % (Auto) (15.5-49.0) % Weld % (Auto) (1.0-12.0) % Eos % (Auto) (0.0-7.0) % Baso % (Auto) (0.0-2.0) % Lymph # (Auto) (1.50-4.80) K/mcL Weld # (Auto) (0.10-0.90) K/mcL Eos # (Auto) (0.00-0.70) K/mcL Baso # (Auto) (0.00-0.30) K/mcL Absolute Neutrophils (1.80-8.00) K/mcL POC PT 18.5 H (11.9-14.5) POC INR 1.6 H (0.8-1.2) Sodium (133-145) mmol/L Potassium (3.3-5.1) mmol/L Chloride (96-108) mmol/L Carbon Dioxide (22-30) mmol/L Anion Gap (8.0-16.0) BUN (8-23) mg/dL Creatinine (0.7-1.2) mg/dL GFR Calculation Glucose (70-105) mg/dL Calcium (8.6-10.4) mg/dL Total Bilirubin (0.1-1.0) mg/dL Direct Bilirubin (<0.3) mg/dL Indirect Bilirubin (0.2-0.8) mg/dL AST (<40) U/L ALT (<40) U/L Alkaline Phosphatase (39-117) U/L NT-Pro-B Natriuret Pep (<125.0) pg/mL Total Protein (5.9-8.4) gm/dL Albumin (3.2-5.2) gm/dL Globulin (2.2-3.7) gm/dL Albumin/Globulin Ratio (1.0-2.3) Lipase 37 (7-60) U/L Urine Color Urine Appearance (Clear) Urine pH (5.0-9.0) Ur Specific [place] (1.000-1.035) Urine Protein (Negative) mg/dL Urine Glucose (UA) (Negative) mg/dL Urine Ketones (Negative) mg/dL Urine Occult Blood (Negative) mg/dL Urine Nitrate (Negative) Urine Bilirubin (Negative) mg/dL Urine Urobilinogen mg/dL Ur Leukocyte Esterase (Negative) /uL Ur Culture Indicated? Peritoneal Source Peritoneal Peritoneal Color Red Peritoneal Appearance Hazy Peritoneal RBC <50,000 /cumm Periton Tot Cells Ct 100 Periton Nuc Cells 184 /cumm Periton Neutrophils 11 % Periton Lymphocytes 8 % Peritoneal Monocytes 66 % Periton Mesothelial 15 % Ethyl Alcohol (<0.010) gm/dL Hepatitis A IgM Ab (Non-Reactive) Hep Bs Antigen (Negative) Hep B Core IgM Ab (Non-Reactive) Hepatitis C Antibody (Non-Reactive) POC Troponin I 11/22/21 Range/Units 12:57 WBC (4.5-11.0) K/mcL RBC (4.63-6.08) M/mcL Hgb (13.7-17.5) g/dL Hct (40.1-51.0) % MCV (80.0-100.0) fL MCH (26.0-34.0) pg MCHC (31.0-36.0) g/dL RDW (11.5-14.5) % Plt Count (140-440) K/mcL MPV (7.4-10.4) fL Neut % (Auto) (38.0-78.0) % Lymph % (Auto) (15.5-49.0) % Weld % (Auto) (1.0-12.0) % Eos % (Auto) (0.0-7.0) % Baso % (Auto) (0.0-2.0) % Lymph # (Auto) (1.50-4.80) K/mcL Weld # (Auto) (0.10-0.90) K/mcL Eos # (Auto) (0.00-0.70) K/mcL Baso # (Auto) (0.00-0.30) K/mcL Absolute Neutrophils (1.80-8.00) K/mcL POC PT (11.9-14.5) POC INR (0.8-1.2) Sodium (133-145) mmol/L Potassium (3.3-5.1) mmol/L Chloride (96-108) mmol/L Carbon Dioxide (22-30) mmol/L Anion Gap (8.0-16.0) BUN (8-23) mg/dL Creatinine (0.7-1.2) mg/dL GFR Calculation Glucose (70-105) mg/dL Calcium (8.6-10.4) mg/dL Total Bilirubin (0.1-1.0) mg/dL Direct Bilirubin (<0.3) mg/dL Indirect Bilirubin (0.2-0.8) mg/dL AST (<40) U/L ALT (<40) U/L Alkaline Phosphatase (39-117) U/L NT-Pro-B Natriuret Pep (<125.0) pg/mL Total Protein (5.9-8.4) gm/dL Albumin (3.2-5.2) gm/dL Globulin (2.2-3.7) gm/dL Albumin/Globulin Ratio (1.0-2.3) Lipase (7-60) U/L Urine Color Urine Appearance (Clear) Urine pH (5.0-9.0) Ur Specific [place] (1.000-1.035) Urine Protein (Negative) mg/dL Urine Glucose (UA) (Negative) mg/dL Urine Ketones (Negative) mg/dL Urine Occult Blood (Negative) mg/dL Urine Nitrate (Negative) Urine Bilirubin (Negative) mg/dL Urine Urobilinogen mg/dL Ur Leukocyte Esterase (Negative) /uL Ur Culture Indicated? Peritoneal Source Peritoneal Color Peritoneal Appearance Peritoneal RBC /cumm Periton Tot Cells Ct Periton Nuc Cells /cumm Periton Neutrophils % Periton Lymphocytes % Peritoneal Monocytes % Periton Mesothelial % Ethyl Alcohol < 0.010 (<0.010) gm/dL Hepatitis A IgM Ab (Non-Reactive) Hep Bs Antigen (Negative) Hep B Core IgM Ab (Non-Reactive) Hepatitis C Antibody (Non-Reactive) POC Troponin I ED POC Tests ED POC Tests: TONY - Influenza A Negative TONY - Influenza B Positive TONY - SARS Antigen Negative Discharge Plan Patient/Caregiver Discharge Instructions Pt seen by SHOE CUTTER/PA only: Yes Clinical Impression: Acute kidney injury superimposed on chronic kidney disease, Anemia, Alcoholic cirrhosis of liver with ascites, Influenza B Patient Disposition: Xfer As Inpt ([facility]) Condition: Fair Discharge Date/Time: 11/22/21 14:03
[2021-11-22] MEDS: 0.9 % SODIUM CHLORIDE 1,000 ML IV SCH (09:06)
--- NOTE | 2021-11-22 10:26 | Cat Scan Report ---
CLINICAL INFORMATION: Cirrhosis and abdominal pain. Possible pancreatitis on ultrasound COMPARISON: None. TECHNIQUE: 0.625 mm helical slices were obtained from the mid heart through the subtrochanteric regions. Following reconstruction, 2.5 mm sagittal, coronal and axial reformatted images were processed and reviewed at bone and soft tissue windows.The exam was performed using radiation dose optimization techniques including, but not limited to, automated exposure control, adjustment of the mA and/or kV according to patient size and use of iterative reconstruction technique. FINDINGS: Moderate right and small left pleural effusions result in compressive subsegmental atelectasis of the posterior dependent lower lobes. The heart is borderline enlarged with calcific plaque in the coronary arteries. Abdominal images show moderate cirrhosis featuring diminutive liver with inhomogeneous attenuation and irregular cortical surface. No focal hepatic lesions. The gallbladder is contracted but shows no gross abnormality. Intrahepatic and common bile ducts are normal-CBD is 6 mm. The pancreas is normal in size and attenuation-no evidence of pancreatitis. The spleen, both kidneys and right adrenal gland are normal. There is a 16 mm benign fat-containing adenoma left adrenal gland. Moderate residual simple ascites is seen in the perihepatic perisplenic and pelvic regions. There is no free air or adenopathy. Pelvic images show Santillan catheter is properly positioned in the urinary bladder. The prostate is mildly enlarged spanning 4 x 4 cm. Scattered sigmoid diverticula appreciated, but no evidence of diverticulitis. The remainder of the large bowel, appendix region, small bowel and stomach are normal. Bone windows show no focal osseous lesion IMPRESSION: 1. No CT evidence for pancreatitis. 2. Moderate cirrhosis with moderate residual ascites. No evidence of portal hypertension or varices. Spleen is normal size. 3. 16 mm benign adenoma left adrenal gland 4. Moderate right and small left pleural effusions resulting in compressive subsegmental atelectasis posterior lower lobes. 5. Mild prostate enlargement Interpreted and Authenticated by: Asim Marvin 11/22/21
--- NOTE | 2021-11-22 13:17 | Internal Med History&Physical ---
HPI History of Present Illness Patient information: Note initiated : 11/22/21 at 1:08 pm Service Date, if different from initiated Date: [] Patient: Tone Alcantara 66 y/o M admitted on for Weakness x7wks. Chief Complaint: [] History of present illness: Mr. Alcantara is a 66 year old male with a history of hypertension, hyperlipidemia, probable chronic kidney disease stage III, alcohol use disorder who presented to the emergency department for concerns of increasing abdominal distention and dyspnea. The patient says that he has mostly been bed ridden for about 10 weeks. Patient does consume large quantities of alcohol. The patient says that he has known about "liver problems" for quite some time. In the emergency department, the patient was found to have an acute on chronic kidney disease injury, hyper bilirubinemia, INR of 1.6, hyponatremia and abdominal distention. The patient had a large-volume paracentesis for about 6 L of serous fluid. There was no evidence of spontaneous bacterial peritonitis. Patient did receive albumin IV for the large-volume paracentesis. In addition, the patient tested positive for influenza B via Alexa rapid antigen test. Hospital medicine was consulted for admission. Review of systems Constitutional: Positive for generalized weakness, no fever Eyes: no vision changes or pain Cardiovascular: no chest pain, no palpitations Respiratory: no cough or dyspnea Gastrointestinal: Positive for abdominal distention and pain. Genitourinary: no dysuria or difficulty voiding Musculoskeletal: no arthralgia or myalgia Integumentary: no skin lesion or wound Neurological: no focal weakness or numbness Psychiatric: no anxiety or depression Physical exam Head: Atraumatic, normal inspection. Eyes: normal appearance, no scleral icterus. Neck: full ROM Respiratory: no respiratory distress. Cardiovascular: normal rate and rhythm, S1, S2. GI/Abdominal: Mild distention, soft, nontender, no guarding. Extremities: full range of motion, nontender. Neurological: CN II-XII intact, intact motor, intact sensation. Psychiatric: Impaired memory. Skin: warm, normal color PFSH PFSH All Active Problems (Updated 11/21/21 @ 20:26 by Susana Morales PA-C) Acute kidney injury superimposed on chronic kidney disease (Acute) Anemia (Acute) Alcoholic cirrhosis of liver with ascites (Acute) Influenza B (Acute) Hypertension (Chronic) CKD (chronic kidney disease) stage 2, GFR 60-89 ml/min (Acute) CKD (chronic kidney disease) stage 3, GFR 30-59 ml/min (Acute) Smoker (Chronic) Hypertension, essential (Chronic) Rotator cuff tear arthropathy (Chronic) Corneal lesion, benign (Chronic) Dry cough (Chronic) Elevated liver function tests (Chronic) Generalized headaches (Chronic) Medical History Corneal lesion, benign Dry cough Elevated liver function tests Generalized headaches Hypertension, essential Rotator cuff tear arthropathy Smoker Surgical History History of back surgery X2 in the early Family History Other No pertinent family history Social History adopted: Yes marital status: single alcohol intake frequency: 2+ drinks per day MEDS/ALLERGIES Home Medications and Allergies Home Medications Medication Instructions Recorded Confirmed Type aspirin 81 mg tablet 81 mg PO QDAY 01/20/16 05/24/16 History chlorthalidone 25 mg tablet 25 mg PO QDAY 01/20/16 05/24/16 History losartan 100 mg tablet 100 mg PO QDAY 01/20/16 05/24/16 History simvastatin 20 mg tablet 10 mg PO QHS tab 01/20/16 05/24/16 History amlodipine 5 mg tablet 5 mg PO QDAY 01/26/16 05/24/16 History cholecalciferol (vitamin D3) 50 2,000 unit PO QDAY #30 cap 05/24/16 05/24/16 Rx mcg (2,000 unit) capsule fluticasone propionate 50 100 mcg INTRANASAL QDAY 05/24/16 05/24/16 History mcg/actuation nasal spray,suspension (Allergy Relief (fluticasone)) Allergies Allergy/AdvReac Type Severity Reaction Status Date / Time No Known Allergies Allergy Unknown Unknown Verified 11/21/21 13:13 EXAM Constitutional Vitals: Temp Pulse Resp BP Pulse Ox 97.4 F 89 18 103/54 95 11/21/21 13:09 11/22/21 12:21 11/21/21 13:09 11/22/21 12:21 11/22/21 12:21 DATA Data Completed and Pending Labs: Labs from last 24 hours 11/22/21 11/22/21 11/22/21 12:57 12:57 06:09 WBC RBC Hgb Hct MCV MCH MCHC RDW Plt Count MPV Neut % (Auto) Lymph % (Auto) [place] % (Auto) Eos % (Auto) Baso % (Auto) Lymph # (Auto) [place] # (Auto) Eos # (Auto) Baso # (Auto) Absolute Neutrophils POC PT POC INR Sodium Potassium Chloride Carbon Dioxide Anion Gap BUN Creatinine GFR Calculation Glucose Calcium Total Bilirubin Direct Bilirubin Indirect Bilirubin AST ALT Alkaline Phosphatase NT-Pro-B Natriuret Pep Total Protein Albumin Globulin Albumin/Globulin Ratio Lipase 37 Urine Color Urine Appearance Urine pH Ur Specific [place] Urine Protein Urine Glucose (UA) Urine Ketones Urine Occult Blood Urine Nitrate Urine Bilirubin Urine Urobilinogen Ur Leukocyte Esterase Ur Culture Indicated? Ur Random Sodium Peritoneal Source Peritoneal Color Peritoneal Appearance Peritoneal RBC Periton Tot Cells Ct Periton Nuc Cells Periton Neutrophils Periton Lymphocytes Peritoneal Monocytes Periton Mesothelial Acetaminophen Pending Ethyl Alcohol Pending Hepatitis A IgM Ab Hep Bs Antigen Hep B Core IgM Ab Hepatitis C Antibody POC Troponin I 11/21/21 11/21/21 11/21/21 19:02 18:37 16:10 WBC RBC Hgb Hct MCV MCH MCHC RDW Plt Count MPV Neut % (Auto) Lymph % (Auto) [place] % (Auto) Eos % (Auto) Baso % (Auto) Lymph # (Auto) [place] # (Auto) Eos # (Auto) Baso # (Auto) Absolute Neutrophils POC PT 18.5 H POC INR 1.6 H Sodium Potassium Chloride Carbon Dioxide Anion Gap BUN Creatinine GFR Calculation Glucose Calcium Total Bilirubin Direct Bilirubin Indirect Bilirubin AST ALT Alkaline Phosphatase NT-Pro-B Natriuret Pep Total Protein Albumin Globulin Albumin/Globulin Ratio Lipase Urine Color Urine Appearance Urine pH Ur Specific [place] Urine Protein Urine Glucose (UA) Urine Ketones Urine Occult Blood Urine Nitrate Urine Bilirubin Urine Urobilinogen Ur Leukocyte Esterase Ur Culture Indicated? Ur Random Sodium Peritoneal Source Peritoneal Peritoneal Color Red Peritoneal Appearance Hazy Peritoneal RBC <50,[address] 100 Periton Nuc Cells 184 Periton Neutrophils 11 Periton Lymphocytes 8 Peritoneal Monocytes 66 [place] Mesothelial 15 Acetaminophen Ethyl Alcohol Hepatitis A IgM Ab Hep Bs Antigen Hep B Core IgM Ab Hepatitis C Antibody POC Troponin I 0 11/21/21 11/21/21 11/21/21 14:19 14:19 13:46 WBC RBC Hgb Hct MCV MCH MCHC RDW Plt Count MPV Neut % (Auto) Lymph % (Auto) [place] % (Auto) Eos % (Auto) Baso % (Auto) Lymph # (Auto) [place] # (Auto) Eos # (Auto) Baso # (Auto) Absolute Neutrophils POC PT POC INR Sodium Potassium Chloride Carbon Dioxide Anion Gap BUN Creatinine GFR Calculation Glucose Calcium Total Bilirubin Direct Bilirubin Indirect Bilirubin AST ALT Alkaline Phosphatase NT-Pro-B Natriuret Pep Total Protein Albumin Globulin Albumin/Globulin Ratio Lipase Urine Color [place] Urine Appearance Hazy A Urine pH 5.0 Ur Specific [place] 1.016 Urine Protein Negative Urine Glucose (UA) Negative Urine Ketones Negative Urine Occult Blood Negative Urine Nitrate Negative Urine Bilirubin Negative Urine Urobilinogen 4.0 A Ur Leukocyte Esterase Negative Ur Culture Indicated? No Ur Random Sodium Pending Peritoneal Source Peritoneal Color Peritoneal Appearance Peritoneal RBC Periton Tot Cells Ct Periton Nuc Cells Periton Neutrophils Periton Lymphocytes Peritoneal Monocytes Periton Mesothelial Acetaminophen Ethyl Alcohol Hepatitis A IgM Ab Non-reactive Hep Bs Antigen Negative Hep B Core IgM Ab Non-reactive Hepatitis C Antibody Non-reactive POC Troponin I 11/21/21 11/21/21 11/21/21 13:46 13:46 13:46 WBC 8.3 RBC 2.31 L Hgb 9.1 L Hct 25.4 L MCV 110.0 H MCH 39.4 H MCHC 35.8 RDW 18.2 H Plt Count 127 L MPV 9.9 Neut % (Auto) 73.7 Lymph % (Auto) 13.4 L [place] % (Auto) 12.6 H Eos % (Auto) 0.1 Baso % (Auto) 0.2 Lymph # (Auto) 1.11 L [place] # (Auto) 1.04 H Eos # (Auto) 0.01 Baso # (Auto) 0.02 Absolute Neutrophils 6.10 POC PT POC INR Sodium 130 L Potassium 3.8 Chloride 97 Carbon Dioxide 20 L Anion Gap 13.0 BUN 39 H Creatinine 2.4 H GFR Calculation 27 Glucose 105 Calcium 8.5 L Total Bilirubin 4.4 H 4.5 H Direct Bilirubin 2.8 H Indirect Bilirubin 1.6 H AST 72 H ALT 32 Alkaline Phosphatase 91 NT-Pro-B Natriuret Pep 402.4 H Total Protein 7.7 Albumin 2.0 L Globulin 5.7 H Albumin/Globulin Ratio 0.4 L Lipase Urine Color Urine Appearance Urine pH Ur Specific [place] Urine Protein Urine Glucose (UA) Urine Ketones Urine Occult Blood Urine Nitrate Urine Bilirubin Urine Urobilinogen Ur Leukocyte Esterase Ur Culture Indicated? Ur Random Sodium Peritoneal Source Peritoneal Color Peritoneal Appearance Peritoneal RBC Periton Tot Cells Ct Periton Nuc Cells Periton Neutrophils Periton Lymphocytes Peritoneal Monocytes Periton Mesothelial Acetaminophen Ethyl Alcohol Hepatitis A IgM Ab Hep Bs Antigen Hep B Core IgM Ab Hepatitis C Antibody POC Troponin I A/P Narrative A/P Narrative: Assessment: 66-year-old male with a history of hypertension, hyperlipidemia, probable chronic kidney disease stage III, alcohol use disorder presented to the emergency department with about 7 weeks of dyspnea, edema and increasing abdominal distention. Abdominal images revealed evidence of liver cirrhosis and ascites, the patient had a paracentesis for 6 L of serous fluid negative for SBP. The patient also had an acute on chronic kidney disease injury. The patient also tested positive for influenza B via rapid antigen test. Suspect the cause of liver cirrhosis to be related to alcohol use disorder. #Acute on chronic kidney disease -possible hepatorenal syndrome, unspecified type -urinalysis benign. -no evidence of hydronephrosis on imaging #Decompensated liver cirrhosis, new diagnosis -probably secondary to chronic alcohol use -MELD-Na score 29 -Madrey discriminant function score 29.7 -initial work-up negative for hepatitis B and C #Bilateral pleural effusions -likely related to liver cirrhosis #Hyper bilirubinemia #Hyponatremia #Macrocytic anemia #Thrombocytopenia #Influenza B #Obesity BMI 31 #Alcohol use disorder Plan -Albumin IV, midodrine, octreotide for possible hepatorenal syndrome -Check urine sodium level. -Check alcohol and acetaminophen level. -Check ammonia level. -Avoid nephrotoxic meds. -Monitor volume status, urine output -If renal function worsens obtain nephrology consult. -Monitor CBC, renal function, LFTs, INR -Paracentesis as needed, calculate SAAG. -CIWA protocol, vitamin supplementation. -Tamiflu for 5 days for influenza B. -Home medication reconciliation. -Low-sodium diet. -DVT prophylaxis: SCDs for now. -CODE STATUS: -Disposition: If renal failure and liver failure improve then the patient will probably discharge to home with outpatient referral to hepatology and nephrology. Time Spent With Patient Time: Total time spent is greater than 50% in coordination of care (as documented) at patient's floor/unit and/or counseling patient:
[2021-11-22 13:47] LABS: Alcohol, Blood < 10.0 mg/dL; Alcohol,Blood < 0.010 gm/dL (<0.010)
[2021-11-22] MEDS ORDERED: SENNOSIDES 1 TABLET PO PRN (14:32)
[2021-11-22] MEDS ORDERED: OSELTAMIVIR PHOSPHATE 75 MG CAPSULE PO ONE (14:32)
[2021-11-22] MEDS ORDERED: LORazepam 2 MG/ML VIAL IV PRN (14:32)
[2021-11-22] MEDS ORDERED: ONDANSETRON 4 MG/2 ML VIAL IV PRN (14:32)
[2021-11-22] MEDS ORDERED: LACTULOSE 20 GM/30 ML ORAL.SOL PO PRN (14:32)
[2021-11-22] MEDS ORDERED: ALBUMIN HUMAN 25 GM/100 ML BAG IV SCH (14:32)
[2021-11-22] MEDS: 0.9 % SODIUM CHLORIDE 10 ML SYRINGE IV SCH ×6 (15:25→23:59)
[2021-11-22] MEDS: MIDODRINE 5 MG TABLET PO SCH ×2 (15:25→17:52)
[2021-11-22] MEDS: OCTREOTIDE ACETATE 100 MCG/ML VIAL SQ SCH ×3 (15:26→21:21)
[2021-11-22] MEDS: THIAMINE 100 MG in 0.9 % SODIUM CHLORIDE 50 ML IV SCH (15:27)
[2021-11-22] MEDS: FOLIC ACID 1 MG TABLET PO SCH (15:27)
[2021-11-22] MEDS ORDERED: LACTULOSE 20 GM/30 ML ORAL.SOL PO SCH (17:00)
[2021-11-22] MEDS: ALBUMIN HUMAN 25 GM/100 ML BAG IV SCH ×2 (17:52→23:58)
[2021-11-22] MEDS: LACTULOSE 20 GM/30 ML ORAL.SOL PO SCH (21:23)
[2021-11-23] MEDS: 0.9 % SODIUM CHLORIDE 10 ML SYRINGE IV SCH ×7 (00:34→21:28)
[2021-11-23] MEDS: ALBUMIN HUMAN 25 GM/100 ML BAG IV SCH ×3 (05:41→17:36)
[2021-11-23 06:35] LABS: Basophils # (Auto) 0.01 K/mcL (0.00-0.30); Basophils % (Auto) 0.1 % (0.0-2.0); Eosinophils # (Auto) 0.01 K/mcL (0.00-0.70); Eosinophils % (Auto) 0.1 % (0.0-7.0); Hematocrit 23.2 % (40.1-51.0); Lymphocytes # (Auto) 1.25 K/mcL (1.50-4.80); Lymphocytes % (Auto) 16.8 % (15.5-49.0); Mean Corpuscular HGB Conc 34.5 g/dL (31.0-36.0); Mean Platelet Volume 9.8 fL (7.4-10.4); Monocytes # (Auto) 1.21 K/mcL (0.10-0.90); Monocytes % (Auto) 16.3 % (1.0-12.0); Neutrophils % (Auto) 66.7 % (38.0-78.0); Platelet Count 117 K/mcL (140-440); RBC 2.09 M/mcL (4.63-6.08); Red Cell Distribution Width 18.9 % (11.5-14.5); WBC 7.4 K/mcL (4.5-11.0)
[2021-11-23 07:15] LABS: ALT/SGPT 20 U/L (<40); AST/SGOT 44 U/L (<40); Albumin 2.5 gm/dL (3.2-5.2); Albumin/Globulin Ratio 0.6 (1.0-2.3); Alkaline Phosphatase 63 U/L (39-117); Bilirubin,Direct 2.9 mg/dL (<0.3); Bilirubin,Total 5.2 mg/dL (0.1-1.0); Blood Urea Nitrogen 46 mg/dL (8-23); Calcium 8.5 mg/dL (8.6-10.4); Carbon Dioxide 21 mmol/L (22-30); Chloride 103 mmol/L (96-108); Globulin 4.1 gm/dL (2.2-3.7); Glomerular Filtration Rate 25; Glucose 126 mg/dL (70-105); Lactate Dehydrogenase 133 U/L (135-225); Phosphorous 4.6 mg/dL (2.5-4.5); Triglycerides 63 mg/dL (<150); Uric Acid 12.2 mg/dL (2.5-8.0)
[2021-11-23 07:42] LABS: INR 2.4 (0.9-1.1); Prothrombin Time 27.1 sec (11.9-14.5)
[2021-11-23] MEDS: MIDODRINE 5 MG TABLET PO SCH ×3 (07:59→17:35)
[2021-11-23] MEDS: THIAMINE 100 MG in 0.9 % SODIUM CHLORIDE 50 ML IV SCH (09:23)
[2021-11-23] MEDS: LACTULOSE 20 GM/30 ML ORAL.SOL PO SCH ×3 (09:23→21:27)
[2021-11-23] MEDS: OSELTAMIVIR PHOSPHATE 30 MG CAPSULE PO SCH ×2 (09:23→21:28)
[2021-11-23] MEDS: FOLIC ACID 1 MG TABLET PO SCH (09:23)
[2021-11-23] MEDS: MULTIVIT,THER IRON,CA,FA & MIN 1 TABLET PO SCH (09:23)
[2021-11-23] MEDS: OCTREOTIDE ACETATE 100 MCG/ML VIAL SQ SCH ×3 (09:42→21:44)
--- NOTE | 2021-11-23 14:42 | Internal Med Progress Note ---
SUBJECTIVE Subjective Patient information: Note initiated : 11/23/21 at 2:39 pm Service Date, if different from initiated Date: [] Patient: Tone Alcantara 66 y/o M admitted on 11/22/21 for Weakness x7wks. Chief Complaint: [] Interval history: Mr. Alcantara is a 66 year old male with a history of hypertension, hyperlipidemia, probable chronic kidney disease stage III, alcohol use disorder who presented to the emergency department for concerns of increasing abdominal distention and dyspnea. The patient says that he has mostly been bed ridden for about 10 weeks. Patient does consume large quantities of alcohol. The patient says that he has known about "liver problems" for quite some time. In the emergency department, the patient was found to have an acute on chronic kidney disease injury, hyper bilirubinemia, INR of 1.6, hyponatremia and abdominal distention. The patient had a large-volume paracentesis for about 6 L of serous fluid. There was no evidence of spontaneous bacterial peritonitis. Patient did receive albumin IV for the large-volume paracentesis. In addition, the patient tested positive for influenza B via Alexa rapid antigen test. Hospital medicine was consulted for admission. 11/23 Creatinine 2.5 today, yesterday 2.4, bilirubin increased from 4.4-5.2, INR 2.4. Urine sodium was 10 consistent with hepatorenal syndrome. Ammonia normal today after starting lactulose yesterday. Blood pressure is significantly improved with albumin, octreotide and midodrine. Repeat afternoon hemoglobin 8.5, up from 8.0 from a morning labs. Physical exam Head: Atraumatic, normal inspection. Eyes: normal appearance, no scleral icterus. Neck: full ROM Respiratory: no respiratory distress. Cardiovascular: normal rate and rhythm, S1, S2. GI/Abdominal: Mild distention, soft, nontender, no guarding. Extremities: full range of motion, nontender. Neurological: CN II-XII intact, intact motor, intact sensation. Psychiatric: Impaired memory. Skin: warm, normal color Constitutional Vitals: Vital Signs Temp Pulse Resp BP Pulse Ox 98.4 F 75 24 H 118/66 94 11/23/21 08:01 11/23/21 10:01 11/23/21 10:01 11/23/21 10:11/23/21 14:29 Period Temp Pulse Resp BP Sys/Coughlin Pulse Ox Last 24 Hr 97.9 F-99.5 F 75-95 14-24 97-128/48-77 93-100 Intake and Output 11/23/21 11/23/21 11/23/21 05:59 13:59 21:59 Intake Total 100 251 Output Total 100 225 Balance 0 26 Intake & Output: Intake & Output 11/23/21 11/23/21 11/23/21 05:59 13:59 21:59 Intake Total 100 251 Output Total 100 225 Balance 0 26 Intake: IV 100 251 Vitamin B1 100 mg In Sodium 51 Chloride 0.9% 50 ml @ 50 mls/hr IV DAILY [facility] Rx#:[id number] Output: Urine Catheter Amount 50 Void Amount 100 175 Other: Meal Breakfast Percent of Meal Consumed 0% Urine Appearance Clear Urine Color Dark Yellow Tea Colored OBJ DATA Labs CBC & Chem 7: 11/23/21 12:25 11/23/21 05:23 Labs: Abnormal Lab Results 11/23/21 11/23/21 11/23/21 12:25 05:23 05:23 RBC Hgb 8.5 L Hct MCV MCH RDW Plt Count Lymph % (Auto) [place] % (Auto) Lymph # (Auto) [place] # (Auto) POC PT PT 27.1 H POC INR INR 2.4 H Sodium Carbon Dioxide 21 L BUN 46 H Creatinine 2.5 H Glucose 126 H Uric Acid 12.2 H Calcium 8.5 L Phosphorus 4.6 H Total Bilirubin 5.2 H Direct Bilirubin 2.9 H Indirect Bilirubin AST 44 H Ammonia Lactate Dehydrogenase 133 L NT-Pro-B Natriuret Pep Albumin 2.5 L Globulin 4.1 H Albumin/Globulin Ratio 0.6 L Urine Appearance Urine Urobilinogen 11/23/21 11/22/21 11/21/21 05:23 14:51 19:02 RBC 2.09 L Hgb 8.0 L Hct 23.2 L MCV 111.0 H MCH 38.3 H RDW 18.9 H Plt Count 117 L Lymph % (Auto) [place] % (Auto) 16.3 H Lymph # (Auto) 1.25 L [place] # (Auto) 1.21 H POC PT 18.5 H PT POC INR 1.6 H INR Sodium Carbon Dioxide BUN Creatinine Glucose Uric Acid Calcium Phosphorus Total Bilirubin Direct Bilirubin Indirect Bilirubin AST Ammonia 141 H Lactate Dehydrogenase NT-Pro-B Natriuret Pep Albumin Globulin Albumin/Globulin Ratio Urine Appearance Urine Urobilinogen 11/21/21 11/21/21 11/21/21 14:19 13:46 13:46 RBC Hgb Hct MCV MCH RDW Plt Count Lymph % (Auto) [place] % (Auto) Lymph # (Auto) [place] # (Auto) POC PT PT POC INR INR Sodium 130 L Carbon Dioxide 20 L BUN 39 H Creatinine 2.4 H Glucose Uric Acid Calcium 8.5 L Phosphorus Total Bilirubin 4.4 H 4.5 H Direct Bilirubin 2.8 H Indirect Bilirubin 1.6 H AST 72 H Ammonia Lactate Dehydrogenase NT-Pro-B Natriuret Pep 402.4 H Albumin 2.0 L Globulin 5.7 H Albumin/Globulin Ratio 0.4 L Urine Appearance Hazy A Urine Urobilinogen 4.0 A 11/21/21 13:46 RBC 2.31 L Hgb 9.1 L Hct 25.4 L MCV 110.0 H MCH 39.4 H RDW 18.2 H Plt Count 127 L Lymph % (Auto) 13.4 L [place] % (Auto) 12.6 H Lymph # (Auto) 1.11 L [place] # (Auto) 1.04 H POC PT PT POC INR INR Sodium Carbon Dioxide BUN Creatinine Glucose Uric Acid Calcium Phosphorus Total Bilirubin Direct Bilirubin Indirect Bilirubin AST Ammonia Lactate Dehydrogenase NT-Pro-B Natriuret Pep Albumin Globulin Albumin/Globulin Ratio Urine Appearance Urine Urobilinogen Meds: Medications Folic Acid (Folic Acid 1 Mg Tablet) 1 mg PO DAILY [facility] Last Admin: 11/23/21 09:23 Dose: 1 mg Documented by: Albumin Human (Buminate) 25 gm in 100 mls @ 200 mls/hr IV BID [facility] Thiamine HCl 100 mg/ Sodium (Chloride) 51 mls @ 50 mls/hr IV DAILY [facility] Last Infusion: 11/23/21 10:25 Dose: Infused Documented by: Albumin Human (Buminate) 25 gm in 100 mls @ 200 mls/hr IV Q6H [facility] Stop: 11/24/21 17:59 Last Infusion: 11/23/21 12:41 Dose: Infused Documented by: Iron Carb/Multivit/Brine Well Operator/Folic Acid (Multivit,Ther Iron,Ca,Fa & Min 1 Tablet) 1 tab PO DAILY [facility] Last Admin: 11/23/21 09:23 Dose: 1 tab Documented by: Lactulose (Lactulose 20 Gm/30 Ml Oral.Joaquina) 10 gm PO DAILYP PRN PRN Reason: Constipation Lactulose (Lactulose 20 Gm/30 Ml Oral.Joaquina) 30 gm PO TID [facility] Last Admin: 11/23/21 09:23 Dose: 30 gm Documented by: Lorazepam (Lorazepam 2 Mg/Ml Vial) 0 mg IV Q4HP PRN; Protocol PRN Reason: Alcohol Withdrawal Midodrine (Midodrine 5 Mg Tablet) 5 mg PO TID@0800,1200,1700 [facility] Last Admin: 11/23/21 12:11 Dose: 5 mg Documented by: Octreotide Acetate (Octreotide Acetate 100 Mcg/Ml Vial) 100 mcg SQ TID [facility] Last Admin: 11/23/21 09:42 Dose: 100 mcg Documented by: Ondansetron HCl (Ondansetron 4 Mg/2 Ml Vial) 4 mg IV Q4HP PRN; Protocol PRN Reason: Nausea And Vomiting Oseltamivir Phosphate (Oseltamivir Phosphate 30 Mg Capsule) 30 mg PO BID [facility] Stop: 11/27/21 09:01 Last Admin: 11/23/21 09:23 Dose: 30 mg Documented by: Senna (Sennosides 1 Tablet) 2 tab PO HSP PRN PRN Reason: Constipation Sodium Chloride (0.9 % Sodium Chloride 10 Ml Syringe) 10 ml IV Q8 [facility] Last Admin: 11/23/21 13:05 Dose: 10 ml Documented by: Sodium Chloride (0.9 % Sodium Chloride 10 Ml Syringe) 10 ml IV Q8 [facility] Last Admin: 11/23/21 13:05 Dose: Not Given Documented by: A/P Narrative A/P Narrative: Assessment: 66-year-old male with a history of hypertension, hyperlipidemia, probable chronic kidney disease stage III, alcohol use disorder presented to the emergency department with about 7 weeks of dyspnea, edema and increasing abdominal distention. Abdominal images revealed evidence of liver cirrhosis and ascites, the patient had a paracentesis for 6 L of serous fluid negative for SBP. The patient also had an acute on chronic kidney disease injury. The patient also tested positive for influenza B via rapid antigen test. Suspect the cause of liver cirrhosis to be related to alcohol use disorder. #Acute on chronic kidney disease -suspected hepatorenal syndrome -urinalysis was benign, urine sodium was 10. -no evidence of hydronephrosis on imaging #Decompensated liver cirrhosis, new diagnosis -probably secondary to chronic alcohol use -MELD-Na score was 29 at admission -Viral hepatitis workup negative for hepatitis A, B. and C #Elevated INR secondary to liver cirrhosis #Hyper bilirubinemia #Macrocytic anemia #Thrombocytopenia #Dental bleeding #Influenza B #Obesity BMI 31 #Alcohol use disorder Plan -Continue albumin IV, midodrine, octreotide for possible hepatorenal syndrome -Avoid nephrotoxic meds. -Monitor volume status, urine output -If renal function worsens significantly obtain nephrology consult. -Continue lactulose, titrate for 2-3 loose bowel movements per day. -Monitor CBC, renal function, LFTs, INR -Paracentesis as needed, calculate SAAG if performed. -CIWA protocol, vitamin supplementation. -Tamiflu for 5 days for influenza B. -Home medication reconciliation. -Low-sodium diet. -DVT prophylaxis: SCDs for now. -CODE STATUS: -Disposition: If renal failure and liver failure improve then the patient will probably discharge to home with outpatient referral to hepatology and nephrology. Time Spent With Patient Time: Total time spent is greater than 50% in coordination of care (as documented) at patient's floor/unit and/or counseling patient: QUALITY VTE Deep Vein Thrombosis/Pulmonary Embolism Present on Admission: No
[2021-11-24] MEDS: ALBUMIN HUMAN 25 GM/100 ML BAG IV SCH ×3 (00:04→14:30)
[2021-11-24] MEDS: 0.9 % SODIUM CHLORIDE 10 ML SYRINGE IV SCH ×4 (05:46→14:31)
[2021-11-24 06:26] LABS: Basophils # (Auto) 0.01 K/mcL (0.00-0.30); Basophils % (Auto) 0.1 % (0.0-2.0); Eosinophils # (Auto) 0 K/mcL (0.00-0.70); Eosinophils % (Auto) 0 % (0.0-7.0); Hematocrit 21.9 % (40.1-51.0); Hemoglobin 7.4 g/dL (13.7-17.5); Lymphocytes % (Auto) 11.6 % (15.5-49.0); Mean Cell Volume 112.9 fL (80.0-100.0); Mean Corpuscular HGB Conc 33.8 g/dL (31.0-36.0); Mean Platelet Volume 10.3 fL (7.4-10.4); Monocytes # (Auto) 1.32 K/mcL (0.10-0.90); Monocytes % (Auto) 16.9 % (1.0-12.0); Neutrophils % (Auto) 71.4 % (38.0-78.0); Platelet Count 157 K/mcL (140-440); RBC 1.94 M/mcL (4.63-6.08); Red Cell Distribution Width 18.9 % (11.5-14.5); WBC 7.8 K/mcL (4.5-11.0)
[2021-11-24 06:43] LABS: INR 2.6 (0.9-1.1); Prothrombin Time 28.7 sec (11.9-14.5)
[2021-11-24 06:50] LABS: ALT/SGPT 14 U/L (<40); AST/SGOT 28 U/L (<40); Albumin 3.1 gm/dL (3.2-5.2); Albumin/Globulin Ratio 0.8 (1.0-2.3); Alkaline Phosphatase 51 U/L (39-117); Bilirubin,Total 5.5 mg/dL (0.1-1.0); Blood Urea Nitrogen 43 mg/dL (8-23); Carbon Dioxide 19 mmol/L (22-30); Chloride 102 mmol/L (96-108); Globulin 3.7 gm/dL (2.2-3.7); Glomerular Filtration Rate 31; Glucose 181 mg/dL (70-105); Lactate Dehydrogenase 107 U/L (135-225); Phosphorous 3.8 mg/dL (2.5-4.5); Triglycerides 57 mg/dL (<150); Uric Acid 11.9 mg/dL (2.5-8.0)
[2021-11-24] MEDS ORDERED: PANTOPRAZOLE 40 MG VIAL IV ONE (07:36)
[2021-11-24] MEDS ORDERED: cefTRIAXone 1 GM VIAL IV SCH (08:00)
[2021-11-24] MEDS ORDERED: 0.9 % SODIUM CHLORIDE 250 ML IV SCH ×2 (08:00→08:15)
[2021-11-24] MEDS ORDERED: PANTOPRAZOLE 80 MG in 0.9 % SODIUM CHLORIDE 100 ML IV SCH (08:15)
[2021-11-24] MEDS: MIDODRINE 5 MG TABLET PO SCH ×2 (08:32→14:23)
[2021-11-24] MEDS: OSELTAMIVIR PHOSPHATE 30 MG CAPSULE PO SCH (08:32)
[2021-11-24] MEDS: MULTIVIT,THER IRON,CA,FA & MIN 1 TABLET PO SCH (08:32)
[2021-11-24] MEDS: OCTREOTIDE ACETATE 100 MCG/ML VIAL SQ SCH (08:32)
[2021-11-24] MEDS: FOLIC ACID 1 MG TABLET PO SCH (08:32)
[2021-11-24] MEDS: THIAMINE 100 MG in 0.9 % SODIUM CHLORIDE 50 ML IV SCH ×2 (08:33→14:32)
[2021-11-24] MEDS: LACTULOSE 20 GM/30 ML ORAL.SOL PO SCH ×2 (08:33→13:35)
[2021-11-24] MEDS ORDERED: OCTREOTIDE ACETATE 500 MCG in 0.9 % SODIUM CHLORIDE 495 ML IV SCH (09:00)
[2021-11-24] MEDS ORDERED: OCTREOTIDE ACETATE 500 MCG in 0.9 % SODIUM CHLORIDE 499.5 ML IV SCH (09:00)
[2021-11-24] MEDS ORDERED: PHYTONADIONE 10 MG in 0.9 % SODIUM CHLORIDE 50 ML IV ONE (10:05)
[2021-11-24] MEDS ORDERED: 0.9 % SODIUM CHLORIDE 10 ML SYRINGE IV PRN (11:34)
--- NOTE | 2021-11-24 12:14 | Internal Med Progress Note ---
SUBJECTIVE Subjective Patient information: Note initiated : 11/24/21 at 12:12 pm Service Date, if different from initiated Date: [] Patient: Tone Alcantara 66 y/o M admitted on 11/22/21 for Weakness x7wks. Chief Complaint: [] Interval history: Mr. Alcantara is a 66 year old male with a history of hypertension, hyperlipidemia, probable chronic kidney disease stage III, alcohol use disorder who presented to the emergency department for concerns of increasing abdominal distention and dyspnea. The patient says that he has mostly been bed ridden for about 10 weeks. Patient does consume large quantities of alcohol. The patient says that he has known about "liver problems" for quite some time. In the emergency department, the patient was found to have an acute on chronic kidney disease injury, hyper bilirubinemia, INR of 1.6, hyponatremia and abdominal distention. The patient had a large-volume paracentesis for about 6 L of serous fluid. There was no evidence of spontaneous bacterial peritonitis. Patient did receive albumin IV for the large-volume paracentesis. In addition, the patient tested positive for influenza B via Alexa rapid antigen test. Hospital medicine was consulted for admission. 11/23 Creatinine 2.5 today, yesterday 2.4, bilirubin increased from 4.4-5.2, INR 2.4. Urine sodium was 10 consistent with hepatorenal syndrome. Ammonia normal today after starting lactulose yesterday. Blood pressure is significantly improved with albumin, octreotide and midodrine. Repeat afternoon hemoglobin 8.5, up from 8.0 from a morning labs. 11/24 Hemoglobin trended down to 7.4, will give 1 unit of red blood cells and 3 units of fresh frozen plasma as INR is trended up to 2.6. Due to concern of GI bleeding, transition from subcutaneous octreotide to IV and started a Protonix infusion. Started ceftriaxone for SBP prophylaxis. Consulted general surgery for EGD. Discussed the patient with gastroenterology at [facility] in [place], GI recommended performing the EGD at [facility] as planned. The patient has bleeding varices or high risk varices then we will pursue transfer to [facility]. Renal function has improved today. Physical exam Head: Atraumatic, normal inspection. Eyes: normal appearance, no scleral icterus. Neck: full ROM Respiratory: no respiratory distress. Cardiovascular: normal rate and rhythm, S1, S2. GI/Abdominal: Mild distention, soft, nontender, no guarding. Extremities: full range of motion, nontender. Neurological: CN II-XII intact, intact motor, intact sensation. Psychiatric: Impaired memory. Skin: warm, normal color Constitutional Vitals: Vital Signs Temp Pulse Resp BP Pulse Ox 97.9 F 81 22 119/85 98 11/24/21 12:01 11/24/21 12:01 11/24/21 12:01 11/24/21 12:01 11/24/21 12:01 Period Temp Pulse Resp BP Sys/Coughlin Pulse Ox Last 24 Hr 97.6 F-98.6 F 75-90 16-33 116-148/56-99 90-98 Intake and Output 11/23/21 11/24/21 11/24/21 21:59 05:59 13:59 Intake Total 320 400 216 Output Total 300 275 0 Balance 20 125 216 Weight 82.372 kg Intake & Output: Intake & Output 11/23/21 11/24/21 11/24/21 21:59 05:59 13:59 Intake Total 320 400 216 Output Total 300 275 0 Balance 20 125 216 Weight 82.372 kg Intake: IV 100 100 216 Sandostatin 500 Mcg In Sodium 88 Chloride 0.9% 495 ml @ 50 MCG/ HR 50 mls/hr IV Q10H LAURA Rx#: [id number] Protonix 80 mg In Sodium 28 Chloride 0.9% 100 ml @ 8 MG/HR 10 mls/hr IV Q10H LAURA Rx#: [id number] Oral 220 300 0 Output: Void Amount 300 275 0 Other: Meal Lunch Percent of Meal Consumed 0% Feeding Ability Independent Urine Appearance Clear Urine Color Dark Yellow Dark Yellow Urine Odor Normal Stool Size Moderate Stool Color Brown Black Stool Consistency Loose # Bowel Movements 1 OBJ DATA Labs CBC & Chem 7: 11/24/21 05:37 11/24/21 05:37 Labs: Abnormal Lab Results 11/24/21 11/24/21 11/24/21 05:37 05:37 05:37 RBC Hgb Hct MCV MCH RDW Plt Count Lymph % (Auto) [place] % (Auto) Lymph # (Auto) [place] # (Auto) POC PT PT 28.7 H POC INR INR 2.6 H Sodium Carbon Dioxide 19 L BUN 43 H Creatinine 2.1 H Glucose 181 H Uric Acid 11.9 H Calcium Phosphorus Total Bilirubin 5.5 H Direct Bilirubin 3.0 H Indirect Bilirubin AST Ammonia 103 H Lactate Dehydrogenase 107 L NT-Pro-B Natriuret Pep Albumin 3.1 L Globulin Albumin/Globulin Ratio 0.8 L Urine Appearance Urine Urobilinogen 11/24/21 11/23/21 11/23/21 05:37 12:25 05:23 RBC 1.94 L Hgb 7.4 L 8.5 L Hct 21.9 L MCV 112.9 H MCH 38.1 H RDW 18.9 H Plt Count Lymph % (Auto) 11.6 L [place] % (Auto) 16.9 H Lymph # (Auto) 0.90 L [place] # (Auto) 1.32 H POC PT PT POC INR INR Sodium Carbon Dioxide 21 L BUN 46 H Creatinine 2.5 H Glucose 126 H Uric Acid 12.2 H Calcium 8.5 L Phosphorus 4.6 H Total Bilirubin 5.2 H Direct Bilirubin 2.9 H Indirect Bilirubin AST 44 H Ammonia Lactate Dehydrogenase 133 L NT-Pro-B Natriuret Pep Albumin 2.5 L Globulin 4.1 H Albumin/Globulin Ratio 0.6 L Urine Appearance Urine Urobilinogen 11/23/21 11/23/21 11/22/21 05:23 05:23 14:51 RBC 2.09 L Hgb 8.0 L Hct 23.2 L MCV 111.0 H MCH 38.3 H RDW 18.9 H Plt Count 117 L Lymph % (Auto) [place] % (Auto) 16.3 H Lymph # (Auto) 1.25 L [place] # (Auto) 1.21 H POC PT PT 27.1 H POC INR INR 2.4 H Sodium Carbon Dioxide BUN Creatinine Glucose Uric Acid Calcium Phosphorus Total Bilirubin Direct Bilirubin Indirect Bilirubin AST Ammonia 141 H Lactate Dehydrogenase NT-Pro-B Natriuret Pep Albumin Globulin Albumin/Globulin Ratio Urine Appearance Urine Urobilinogen 11/21/21 11/21/21 11/21/21 19:02 14:19 13:46 RBC Hgb Hct MCV MCH RDW Plt Count Lymph % (Auto) [place] % (Auto) Lymph # (Auto) [place] # (Auto) POC PT 18.5 H PT POC INR 1.6 H INR Sodium Carbon Dioxide BUN Creatinine Glucose Uric Acid Calcium Phosphorus Total Bilirubin 4.4 H Direct Bilirubin 2.8 H Indirect Bilirubin 1.6 H AST Ammonia Lactate Dehydrogenase NT-Pro-B Natriuret Pep Albumin Globulin Albumin/Globulin Ratio Urine Appearance Hazy A Urine Urobilinogen 4.0 A 11/21/21 11/21/21 13:46 13:46 RBC 2.31 L Hgb 9.1 L Hct 25.4 L MCV 110.0 H MCH 39.4 H RDW 18.2 H Plt Count 127 L Lymph % (Auto) 13.4 L [place] % (Auto) 12.6 H Lymph # (Auto) 1.11 L [place] # (Auto) 1.04 H POC PT PT POC INR INR Sodium 130 L Carbon Dioxide 20 L BUN 39 H Creatinine 2.4 H Glucose Uric Acid Calcium 8.5 L Phosphorus Total Bilirubin 4.5 H Direct Bilirubin Indirect Bilirubin AST 72 H Ammonia Lactate Dehydrogenase NT-Pro-B Natriuret Pep 402.4 H Albumin 2.0 L Globulin 5.7 H Albumin/Globulin Ratio 0.4 L Urine Appearance Urine Urobilinogen Meds: Medications Ceftriaxone Sodium (Ceftriaxone 1 Gm Vial) 1 gm IV Q24H [facility]; Protocol Last Admin: 11/24/21 09:34 Dose: 1 gm Documented by: Folic Acid (Folic Acid 1 Mg Tablet) 1 mg PO DAILY [facility] Last Admin: 11/24/21 08:32 Dose: 1 mg Documented by: Albumin Human (Buminate) 25 gm in 100 mls @ 200 mls/hr IV BID [facility] Thiamine HCl 100 mg/ Sodium (Chloride) 51 mls @ 50 mls/hr IV DAILY [facility] Last Infusion: 11/23/21 10:25 Dose: Infused Documented by: Albumin Human (Buminate) 25 gm in 100 mls @ 200 mls/hr IV Q6H [facility] Stop: 11/24/21 17:59 Last Infusion: 11/24/21 06:15 Dose: Infused Documented by: Sodium Chloride (Sodium Chloride 0.9%) 250 mls @ 20 mls/hr IV .[id number] [facility] Stop: 11/24/21 20:29 Last Admin: 11/24/21 09:34 Dose: 20 mls/hr Documented by: Sodium Chloride (Sodium Chloride 0.9%) 250 mls @ 20 mls/hr IV .[id number] [facility] Stop: 11/24/21 20:44 Last Admin: 11/24/21 09:34 Dose: 20 mls/hr Documented by: Pantoprazole Sodium 80 mg/ (Sodium Chloride) 100 mls @ 10 mls/hr IV Q10H [facility] Last Infusion: 11/24/21 11:20 Dose: 0 mg/hr, 0 mls/hr Documented by: Octreotide Acetate 500 mcg/ (Sodium Chloride) 500 mls @ 50 mls/hr IV Q10H [facility] Last Infusion: 11/24/21 11:20 Dose: 0 mcg/hr, 0 mls/hr Documented by: Iron Carb/Multivit/[place]/Folic Acid (Multivit,Ther Iron,Ca,Fa & Min 1 Tablet) 1 tab PO DAILY [facility] Last Admin: 11/24/21 08:32 Dose: 1 tab Documented by: Lactulose (Lactulose 20 Gm/30 Ml Oral.Joaquina) 10 gm PO DAILYP PRN PRN Reason: Constipation Lactulose (Lactulose 20 Gm/30 Ml Oral.Joaquina) 30 gm PO TID [facility] Last Admin: 11/24/21 08:33 Dose: Not Given Documented by: Lorazepam (Lorazepam 2 Mg/Ml Vial) 0 mg IV Q4HP PRN; Protocol PRN Reason: Alcohol Withdrawal Midodrine (Midodrine 5 Mg Tablet) 5 mg PO TID@0800,1200,1700 [facility] Last Admin: 11/24/21 08:32 Dose: 5 mg Documented by: Ondansetron HCl (Ondansetron 4 Mg/2 Ml Vial) 4 mg IV Q4HP PRN; Protocol PRN Reason: Nausea And Vomiting Oseltamivir Phosphate (Oseltamivir Phosphate 30 Mg Capsule) 30 mg PO BID [facility] Stop: 11/27/21 09:01 Last Admin: 11/24/21 08:32 Dose: 30 mg Documented by: Senna (Sennosides 1 Tablet) 2 tab PO HSP PRN PRN Reason: Constipation Sodium Chloride (0.9 % Sodium Chloride 10 Ml Syringe) 10 ml IV Q8 [facility] Last Admin: 11/24/21 05:46 Dose: 10 ml Documented by: Sodium Chloride (0.9 % Sodium Chloride 10 Ml Syringe) 10 ml IV Q8 [facility] Last Admin: 11/24/21 05:47 Dose: Not Given Documented by: Sodium Chloride (0.9 % Sodium Chloride 10 Ml Syringe) 10 ml IV Q12 [facility] Sodium Chloride (0.9 % Sodium Chloride 10 Ml Syringe) 10 ml IV UD PRN PRN Reason: Before and after medications A/P Narrative A/P Narrative: Assessment: 66-year-old male with a history of hypertension, hyperlipidemia, probable chronic kidney disease stage III, alcohol use disorder presented to the emergency department with about 7 weeks of dyspnea, edema and increasing abdominal distention. Abdominal images revealed evidence of liver cirrhosis and ascites, the patient had a paracentesis for 6 L of serous fluid negative for SBP. The patient also had an acute on chronic kidney disease injury. The patient also tested positive for influenza B via rapid antigen test. Suspect the cause of liver cirrhosis to be related to alcohol use disorder. #Acute on chronic kidney disease -suspected hepatorenal syndrome -urinalysis was benign, urine sodium was 10. -no evidence of hydronephrosis on imaging #Decompensated liver cirrhosis, new diagnosis -probably secondary to chronic alcohol use -MELD-Na score was 29 at admission -Viral hepatitis workup negative for hepatitis A, B. and C #Concern for GI bleed #Elevated INR secondary to liver cirrhosis #Hyper bilirubinemia #Macrocytic anemia #Thrombocytopenia #Dental bleeding #Influenza B #Obesity BMI 31 #Alcohol use disorder Plan -Continue albumin IV, midodrine, octreotide for possible hepatorenal syndrome. -Octreotide IV due to concern of GI bleeding, increased risk for variceal bleed. -Protonix infusion for concern of upper GI bleed -Ceftriaxone for SBP prophylaxis. -Vitamin K 10 mg IV once. -3 units fresh frozen plasma today. -1 unit RBC today. -Follow hemoglobin, transfuse for hemoglobin less than 7 or symptomatic anemia. -Monitor INR. -Paracentesis as needed, calculate SAAG if performed. -Avoid nephrotoxic meds. -Monitor volume status, urine output -Continue lactulose, titrate for 2-3 loose bowel movements per day. -Monitor CBC, renal function, LFTs, INR -WA protocol, vitamin supplementation. -Tamiflu for 5 days for influenza B. -N.p.o. for EGD. -General surgery consulted for EGD. -DVT prophylaxis: SCDs -CODE STATUS: Limited -Disposition: TBD Time Spent With Patient Time: Total time spent is greater than 50% in coordination of care (as documented) at patient's floor/unit and/or counseling patient: QUALITY VTE Deep Vein Thrombosis/Pulmonary Embolism Present on Admission: No
--- NOTE | 2021-11-24 12:51 | Ultrasound Report ---
CLINICAL INFORMATION: COMPARISON: None. FINDINGS: Exam is limited to evaluation of the portal vein. The portal vein is normal diameter 12 mm and demonstrates normal directional hepatopedal blood flow. Hepatic veins are patent and demonstrate normal directional blood flow. IMPRESSION: Portal vein is normal diameter with normal hepatopedal blood flow. No evidence for portal hypertension Interpreted and Authenticated by: Asim Marvin 11/24/21
--- NOTE | 2021-11-24 13:40 | Procedure Note ---
PROC Central Line Placement Right IJ: Consent obtained: verbal consent and written consent Date of Procedure: 11/24/21 Time out performed: Yes Patient placed on monitor/pulse ox: Yes MD prep: mask, sterile gown, sterile gloves and cap Central line prep: 2% Chlorhexidine scrub, large sterile drapes applied and proper hand hygiene Local anesthesia used: lidocaine 1% Amount of anesthesia used (mls): 6 Ultrasound used for placement: Yes Central line lumen inserted: quad Post procedure: sutured in place, good blood return, all ports aspirated, flushed, capped and sterile dressing applied Post procedure x-ray: tip of catheter in good position and no pneumothorax seen Patient tolerated procedure: well and no complications Complications: none
--- NOTE | 2021-11-24 14:30 | General Surgery Consult Note ---
HPI Data of Consult Consult date: 11/24/21 Requesting physician: Min Schneider Primary Care Provider: Dar Lester Consult Narrative Patient Information: Note initiated : 11/24/21 at 2:28 pm Service Date, if different from initiated Date: [] Patient: Tone Alcantara 66 y/o M admitted on 11/22/21 for Weakness x7wks. Chief Complaint: [] Chief complaint: Alcoholic cirrhosis with ascites; upper GI bleed; hepatorenal syndrome Reason for consult: Upper GI bleeding cc:: CC: Min Schneider MD 66-year-old male who is seen at the request of the hospitalist service for possibility of upper endoscopy to evaluate for the source of upper GI bleeding. The patient was admitted 2 days ago after spending over 48 hours in the emergency room. He presented with evidence of anemia, massive ascites, acute on chronic renal failure with cirrhotic liver disease as the inciting entity. He had black stools with positive guaiac. Because of massive ascites he underwent paracentesis with removal of 5.9 L of fluid. His volume was replenished with albumin. There was a drop in hemoglobin from 9.1-7.4 but this may be partially due to hemodilution. I am asked to see the patient for upper endoscopy to rule out the source of bleeding. After evaluation it is my opinion that this patient is too critically ill to be managed at our facility. I do not think he should have his endoscopic procedure here. He should be stabilized as you have done and transfer to a tertiary care facility. The patient has extensive comorbidity related to his end-stage liver disease and has a high potential for fatal outcome if he should develop a major bleed. I have discussed this with the hospitalist and have suggested that the patient be transferred to a tertiary care facility where he can receive the necessary critical care. PFSH PFSH All Active Problems (Updated 11/21/21 @ 20:26 by Susana Morales PA-C) Acute kidney injury superimposed on chronic kidney disease (Acute) Anemia (Acute) Alcoholic cirrhosis of liver with ascites (Acute) Influenza B (Acute) Hypertension (Chronic) CKD (chronic kidney disease) stage 2, GFR 60-89 ml/min (Acute) CKD (chronic kidney disease) stage 3, GFR 30-59 ml/min (Acute) Smoker (Chronic) Hypertension, essential (Chronic) Rotator cuff tear arthropathy (Chronic) Corneal lesion, benign (Chronic) Dry cough (Chronic) Elevated liver function tests (Chronic) Generalized headaches (Chronic) Medical History Corneal lesion, benign Dry cough Elevated liver function tests Generalized headaches Hypertension, essential Rotator cuff tear arthropathy Smoker Surgical History History of back surgery X2 in the early Family History Other No pertinent family history Social History adopted: Yes marital status: single alcohol intake frequency: 2+ drinks per day MEDS/ALLERGIES Home Medications and Allergies Home Medications Medication Instructions Recorded Confirmed Type No Known Home Meds 11/24/21 11/24/21 History Allergies Allergy/AdvReac Type Severity Reaction Status Date / Time No Known Allergies Allergy Unknown Unknown Verified 11/21/21 13:13 Physical Examination Vital Signs Vital signs: Temp Pulse Resp BP Pulse Ox 99.1 F H 82 23 H 124/67 96 11/24/21 12:55 11/24/21 14:01 11/24/21 14:01 11/24/21 14:01 11/24/21 14:01 Results Labs Result diagrams: 11/24/21 05:37 11/24/21 05:37 Labs: Abnormal lab results 11/24/21 11/24/21 11/24/21 Range/Units 05:37 05:37 05:37 RBC 1.94 L (4.63-6.08) M/mcL Hgb 7.4 L (13.7-17.5) g/dL Hct 21.9 L (40.1-51.0) % MCV 112.9 H (80.0-100.0) fL MCH 38.1 H (26.0-34.0) pg RDW 18.9 H (11.5-14.5) % Lymph % (Auto) 11.6 L (15.5-49.0) % [place] % (Auto) 16.9 H (1.0-12.0) % Lymph # (Auto) 0.90 L (1.50-4.80) K/mcL [place] # (Auto) 1.32 H (0.10-0.90) K/mcL PT 28.7 H (11.9-14.5) sec INR 2.6 H (0.9-1.1) Carbon Dioxide 19 L (22-30) mmol/L BUN 43 H (8-23) mg/dL Creatinine 2.1 H (0.7-1.2) mg/dL Glucose 181 H (70-105) mg/dL Uric Acid 11.9 H (2.5-8.0) mg/dL Total Bilirubin 5.5 H (0.1-1.0) mg/dL Direct Bilirubin 3.0 H (<0.3) mg/dL Ammonia (16-60) umol/L Lactate Dehydrogenase 107 L (135-225) U/L Albumin 3.1 L (3.2-5.2) gm/dL Albumin/Globulin Ratio 0.8 L (1.0-2.3) 11/24/21 Range/Units 05:37 RBC (4.63-6.08) M/mcL Hgb (13.7-17.5) g/dL Hct (40.1-51.0) % MCV (80.0-100.0) fL MCH (26.0-34.0) pg RDW (11.5-14.5) % Lymph % (Auto) (15.5-49.0) % [place] % (Auto) (1.0-12.0) % Lymph # (Auto) (1.50-4.80) K/mcL [place] # (Auto) (0.10-0.90) K/mcL PT (11.9-14.5) sec INR (0.9-1.1) Carbon Dioxide (22-30) mmol/L BUN (8-23) mg/dL Creatinine (0.7-1.2) mg/dL Glucose (70-105) mg/dL Uric Acid (2.5-8.0) mg/dL Total Bilirubin (0.1-1.0) mg/dL Direct Bilirubin (<0.3) mg/dL Ammonia 103 H (16-60) umol/L Lactate Dehydrogenase (135-225) U/L Albumin (3.2-5.2) gm/dL Albumin/Globulin Ratio (1.0-2.3) Diabetes panel 11/24/21 Range/Units 05:37 Sodium 134 (133-145) mmol/L Potassium 4.2 (3.3-5.1) mmol/L Chloride 102 (96-108) mmol/L Carbon Dioxide 19 L (22-30) mmol/L BUN 43 H (8-23) mg/dL Creatinine 2.1 H (0.7-1.2) mg/dL Glucose 181 H (70-105) mg/dL Calcium 9.0 (8.6-10.4) mg/dL AST 28 (<40) U/L ALT 14 (<40) U/L Alkaline Phosphatase 51 (39-117) U/L Total Protein 6.8 (5.9-8.4) gm/dL Albumin 3.1 L (3.2-5.2) gm/dL Triglycerides 57 (<150) mg/dL Calcium panel 11/24/21 Range/Units 05:37 Calcium 9.0 (8.6-10.4) mg/dL Phosphorus 3.8 (2.5-4.5) mg/dL Albumin 3.1 L (3.2-5.2) gm/dL Pituitary panel 11/24/21 Range/Units 05:37 Sodium 134 (133-145) mmol/L Potassium 4.2 (3.3-5.1) mmol/L Chloride 102 (96-108) mmol/L Carbon Dioxide 19 L (22-30) mmol/L BUN 43 H (8-23) mg/dL Creatinine 2.1 H (0.7-1.2) mg/dL Glucose 181 H (70-105) mg/dL Calcium 9.0 (8.6-10.4) mg/dL Adrenal panel 11/24/21 Range/Units 05:37 Sodium 134 (133-145) mmol/L Potassium 4.2 (3.3-5.1) mmol/L Chloride 102 (96-108) mmol/L Carbon Dioxide 19 L (22-30) mmol/L BUN 43 H (8-23) mg/dL Creatinine 2.1 H (0.7-1.2) mg/dL Glucose 181 H (70-105) mg/dL Calcium 9.0 (8.6-10.4) mg/dL Total Bilirubin 5.5 H (0.1-1.0) mg/dL AST 28 (<40) U/L ALT 14 (<40) U/L Alkaline Phosphatase 51 (39-117) U/L Total Protein 6.8 (5.9-8.4) gm/dL Albumin 3.1 L (3.2-5.2) gm/dL All other labs normal. A/P Time Spent With Patient Time: Total time spent is greater than 50% in coordination of care (as documented) at patient's floor/unit and/or counseling patient:
--- NOTE | 2021-11-24 14:36 | XRay Report ---
CLINICAL INFORMATION: Central line placement COMPARISON: 11/21/2021 TECHNIQUE: Portable FINDINGS: The heart size, mediastinum and pulmonary vessels are unremarkable. Right IJ central line tip overlies the SVC right atrial junction. There is no pneumothorax or other complication from line placement. Small right pleural effusion with atelectasis in the right infrahilar region as previously seen. IMPRESSION: Satisfactory position Right lower lobe subsegmental atelectasis with small right pleural effusion Interpreted and Authenticated by: Asim Marvin 11/24/21
--- NOTE | 2021-11-24 15:41 | Discharge Summary ---
Discharge Provider Provider Patient information: Note initiated : 11/24/21 at 3:31 pm Service Date, if different from initiated Date: [] Patient: Tone Alcantara 66 y/o M admitted on 11/22/21 for Weakness [id number]. Chief Complaint: [] Date of admission: 11/22/21 14:03 Discharge date: 11/24/21 Primary care physician: Dar Lester Consults: 11/22/21 Consult to Physician [CONS] Stat Comment: Consulting Provider: Min Schneider Reason For Exam: Physician to Consult 11/24/21 08:13 Consult to Physician [CONS] Routine Comment: Consulting Provider: Willy Mitchell Reason For Exam: Physician to Consult Discharge Meds Discharge Medications Home Medications No Known Home Meds 11/24/21 [History Confirmed 11/24/21 Last Taken Unknown] COURSE Hospital Course Hospital course: Mr. Alcantara is a 66 year old male with a history of hypertension, hyperlipidemia, probable chronic kidney disease stage III, alcohol use disorder who presented to the emergency department for concerns of increasing abdominal distention and dyspnea. The patient says that he has mostly been bed ridden for about 10 weeks. Patient does consume large quantities of alcohol. The patient says that he has known about "liver problems" for quite some time. In the emergency department, the patient was found to have an acute on chronic kidney disease i njury, hyper bilirubinemia, INR of 1.6, hyponatremia and abdominal distention. The patient had a large-volume paracentesis for about 6 L of serous fluid. There was no evidence of spontaneous bacterial peritonitis. Patient did receive albumin IV for the large-volume paracentesis. In addition, the patient tested positive for influenza B via Alexa rapid antigen test. Hospital medicine was consulted for admission. 11/23 Creatinine 2.5 today, yesterday 2.4, bilirubin increased from 4.4-5.2, INR 2.4. Urine sodium was 10 consistent with hepatorenal syndrome. Ammonia normal at 40 today after starting lactulose yesterday. Blood pressure is significantly higher with albumin, octreotide and midodrine for hepatorenal syndrome. Repeat afternoon hemoglobin 8.5, up from 8.0 from a morning labs. 11/24 Hemoglobin trended down to 7.4, ordered 1 unit of red blood cells and 3 units of fresh frozen plasma as INR is trended up to 2.6. Vitamin K 10 mg IV given. Started ceftriaxone for SBP prophylaxis. Due to concern of GI bleeding, transition from subcutaneous octreotide to IV and started a Protonix infusion. Difficult access for additional peripheral IVs, right internal jugular central line placed for multiple infusion medications. The patient is hemodynamically stable albeit on midodrine 5 mg every 8 hours for hepatorenal syndrome. Renal function has improved today and the patient is making urine. Ammonia has increased, today at 103, yesterday it was 40. Consulted general surgery for EGD. Also discussed the patient with gastroenterology, Dr. Gillette, at [facility] in [place], GI recommended performing the EGD at [facility] as planned. General surgery evaluated the patient in the afternoon and felt an EGD was high risk for an EGD at [facility]. Discussed the patient again with gastroenterology at [facility], GI recommended transferring for urgent EGD work-up. Discussed the patient with hospital medicine at [facility], Dr. Valle, the patient was excepted for transfer. Santillan catheter placed for transport to [facility] in [place], [place]. Anticipate the patient will need another paracentesis soon. Physical exam Head: Atraumatic, normal inspection. Eyes: normal appearance, no scleral icterus. Neck: full ROM Respiratory: no respiratory distress. Cardiovascular: normal rate and rhythm, S1, S2. GI/Abdominal: Mild distention, soft, nontender, no guarding. Extremities: full range of motion, nontender. Neurological: CN II-XII intact, intact motor, intact sensation. Psychiatric: Impaired memory. Skin: warm, normal color Discharge diagnosis: Acute anemia, concern for GI bleed. Secondary discharge diagnosis: Renal failure probably secondary to hepatorenal syndrome Decompensated liver cirrhosis, likely due to alcohol use disorder Coagulopathy secondary to liver cirrhosis Influenza B Time Spent with Patient Time attestation: Total time spent providing and/or coordinating discharge services: EXAM Constitutional Vitals: Temp Pulse Resp BP Pulse Ox 99.1 F H 82 23 H 124/67 96 11/24/21 12:55 11/24/21 14:01 11/24/21 14:01 11/24/21 14:01 11/24/21 14:01 Discharge Data Data Completed and Pending Labs on day of discharge: Labs from last 24 hours 11/24/21 11/24/21 11/24/21 05:37 05:37 05:37 WBC RBC Hgb Hct MCV MCH MCHC RDW Plt Count MPV Neut % (Auto) Lymph % (Auto) [place] % (Auto) Eos % (Auto) Baso % (Auto) Lymph # (Auto) [place] # (Auto) Eos # (Auto) Baso # (Auto) Absolute Neutrophils PT 28.7 H INR 2.6 H Sodium 134 Potassium 4.2 Chloride 102 Carbon Dioxide 19 L Anion Gap 13.0 BUN 43 H Creatinine 2.1 H GFR Calculation 31 Glucose 181 H Uric Acid 11.9 H Calcium 9.0 Phosphorus 3.8 Magnesium 2.5 Total Bilirubin 5.5 H Direct Bilirubin 3.0 H GGT 28 AST 28 ALT 14 Alkaline Phosphatase 51 Ammonia 103 H Lactate Dehydrogenase 107 L Total Protein 6.8 Albumin 3.1 L Globulin 3.7 Albumin/Globulin Ratio 0.8 L Triglycerides 57 11/24/21 05:37 WBC 7.8 RBC 1.94 L Hgb 7.4 L Hct 21.9 L MCV 112.9 H MCH 38.1 H MCHC 33.8 RDW 18.9 H Plt Count 157 MPV 10.3 Neut % (Auto) 71.4 Lymph % (Auto) 11.6 L [place] % (Auto) 16.9 H Eos % (Auto) 0 Baso % (Auto) 0.1 Lymph # (Auto) 0.90 L [place] # (Auto) 1.32 H Eos # (Auto) 0 Baso # (Auto) 0.01 Absolute Neutrophils 5.56 PT INR Sodium Potassium Chloride Carbon Dioxide Anion Gap BUN Creatinine GFR Calculation Glucose Uric Acid Calcium Phosphorus Magnesium Total Bilirubin Direct Bilirubin GGT AST ALT Alkaline Phosphatase Ammonia Lactate Dehydrogenase Total Protein Albumin Globulin Albumin/Globulin Ratio Triglycerides Discharge Plan Patient/Caregiver Discharge Instructions Activity: increase activity as tolerated Diet: Low Sodium (2gm) Prescriptions: No Action No Known Home Meds 0RF Follow Up Plan Follow up with: Dar Lester ARNP [Primary Care Provider] - Patient Disposition: [facility] Prognosis: Fair Rehab Potential: Serious Overall status at discharge: patient is not back to baseline Discharge Orders: Discharge Order (Routine); Ordered 11/24/21 Ordered By: Min MASSEY VTE Deep Vein Thrombosis/Pulmonary Embolism Present on Admission: No
[2021-11-24] MEDS ORDERED: PANTOPRAZOLE 40 MG VIAL IV SCH (17:00)
[2021-11-24] MEDS ORDERED: 0.9 % SODIUM CHLORIDE 10 ML SYRINGE IV SCH (21:00)
[2021-11-25] MEDS ORDERED: ALBUMIN HUMAN 25 GM/100 ML BAG IV SCH (09:00)
== END 2021-11-24 16:00 | disposition short-term general hospital (02) | DRG 377 ==
LOC: ED 13:09 → ICU 11-22 14:03
PROVIDERS: ADMIT Internal Medicine; ATTEND Internal Medicine